=== PATIENT | female | born 1985 | race Caucasian/White ===

== ENCOUNTER 2020-01-23 09:48 | Emergency (ER) | payer BC, OTHER ==
[2020-01-23 09:55] VITALS: BP 118/75; PULSE 76; RESP 18; TEMP 98.1
[2020-01-23] MEDS ORDERED: KETOROLAC 15 MG/ML 1 ML VIAL IM STA (10:14)
--- NOTE | 2020-01-23 10:14 | ED ---
ENT HPI - General Chief complaint: Dental/Oral Stated complaint: Tooth pain Time Seen by Provider: 01/23/20 10:00 Source: patient Mode of arrival: ambulatory Limitations: no limitations - History of Present Illness Initial comments: Patient is a 34-year-old female presenting to the emergency Department with complaints of left upper dental pain that started yesterday. Patient states she has been trying to take ibuprofen for the pain and using topical Orajel which did help yesterday but is not helping today. She denies any fever, vomiting, facial swelling. She states she did try calling dentists around the area but they are all closed until Saturday. She states she has had dental pain in the past but never been this severe. She has no further complaints at this time. Upon arrival to the ER, her vital signs are stable. - Related Data Previous Rx's Medication Instructions Recorded Hydrocodone/Acetaminophen [[place] 1 tab PO Q6HR PRN #10 tab 01/23/20 5-325] Penicillin V Potassium [Pen Vee K] 500 mg PO QID 5 Days #20 tablet 01/23/20 Allergies Allergy/AdvReac Type Severity Reaction Status Date / Time No Known Allergies Allergy Verified 01/23/20 09:52 Review of Systems ROS Statement: Those systems with pertinent positive or pertinent negative responses have been documented in the HPI. ROS Other: All systems not noted in ROS Statement are negative. Past Medical History Past Medical History: GERD/Reflux History of Any Multi-Drug Resistant Organisms: None Reported Past Surgical History: Adenoidectomy Past Psychological History: No Psychological Hx Reported Smoking Status: Current every day smoker Past Alcohol Use History: Rare Past Drug Use History: None Reported General Exam - General Exam Comments Initial Comments: GENERAL: Patient is well-developed and well-nourished. Patient is nontoxic and in no acute distress. HEAD: Atraumatic, normocephalic. EYES: Pupils equal round and reactive to light, extraocular movements intact, sclera anicteric, conjunctiva are normal. Eyelids were unremarkable. ENT: TMs normal, nares patent, oropharynx clear without exudates. Moist mucous membranes. Patient does have pain with palpation along the gumline of the left upper molars, no visible abscess seen. No facial swelling. NECK: Normal range of motion, supple without lymphadenopathy or JVD. LUNGS: Unlabored respirations. Breath sounds clear to auscultation bilaterally and equal. No wheezes rales or rhonchi. HEART: Regular rate and rhythm without murmurs, rubs or gallops. ABDOMEN: Soft, nontender, normoactive bowel sounds. No guarding, no rebound. No masses appreciated. : Deferred MUSCULOSKELETAL: Normal extremities with adequate strength and normal range of motion, no pitting or edema. No clubbing or cyanosis. NEUROLOGICAL: Patient is alert and oriented x 3. Motor and sensory are also intact. Symmetrical smile. Normal speech, normal gait. PSYCH: Normal mood, normal affect. SKIN: Warm, Dry, normal turgor, no rashes or lesions noted. Limitations: no limitations Course Vital Signs 01/23/20 09:52 Temperature 98.1 F Pulse Rate 76 Respiratory 18 Rate Blood Pressure 118/75 O2 Sat by Pulse 100 Oximetry Medical Decision Making - Medical Decision Making Patient is a 34-year-old female here for left upper dental pain 2 days. Vital signs are stable, afebrile. There is no visible abscess seen. Patient did try to get ahold of her dentist, however they are closed until after the holiday weekend. Patient will be given Toradol in the ER and started on penicillin as well as a short course of pain meds. She is urged to follow-up with dentist as soon as she can. She is stable for discharge. Patient is agreement with this plan of care. Return parameters were discussed with the patient she verbalized understanding. Disposition Clinical Impression: Pain, dental Disposition: HOME SELF-CARE Condition: Stable Instructions (If sedation given, give patient instructions): Toothache (ED) Additional Instructions: Please return to the Emergency Department if symptoms worsen or any other concerns. Take antibiotic as prescribed. May take pain medication as prescribed as well, alternate with ibuprofen. Follow-up with dentist JAMAL. Prescriptions: Hydrocodone/Acetaminophen [[place] 5-325] 1 tab PO Q6HR PRN #10 tab PRN Reason: Pain Penicillin V Potassium [Pen Vee K] 500 mg PO QID 5 Days #20 tablet Is patient prescribed a controlled substance at d/c from ED?: Yes When asked, does pt state using other controlled substances?: No If prescribed controlled substance>3 days was MAPS reviewed?: Prescribed <3 Days If opioid is for acute pain is fill amount 7 days or less?: Yes If Rx opioid, was Start Talking consent form obtained?: Yes Referrals: Fam Mujica DO [Primary Care Provider] - 1-2 days
== END 2020-01-23 10:50 | disposition home or self-care (01) ==
LOC: EC 09:48
DX: K08.89 Other specified disorders of teeth and supporting structures (principal); F17.200 Nicotine dependence, unspecified, uncomplicated
CPT/HCPCS: 96372; 99282; J1885

== ENCOUNTER → 2020-06-29 | Outpatient (CLI) | payer OTHER ==
--- NOTE | 2020-06-29 14:03 | US ---
EXAMINATION TYPE: Ultrasound OB <= 14 week fetus DATE OF EXAM: 06/29/2020 12:56 PM COMPARISON: NONE CLINICAL HISTORY: 34-year-old female Z36 confirm dates. EXAM PERFORMED: Transabdominal (TA) FINDINGS: EXAM MEASUREMENTS: GESTATIONAL AGE / DATING Physician Established: (10 weeks/4 days) EDC: 01/21/2021 Dates by LMP: (10 weeks/4 days) EDC: 01/21/2021 Dates by First Scan: No previous this is first scan ( Dates by Current Scan for: ( 9 weeks/5 days +/- 6 days) EDC: 01/27/2021 MATERNAL ANATOMY Uterus: 9.2 x 5.5 x 7.1 cm Right Ovary: Obscured by bowel gas. Left Ovary: 2.9 x 2.8 x 2.7 cm Post CDS / Adnexa: wnl Presence of free fluid: no Presence of corpus luteal cyst: On the left side measuring 2.1 cm. Presence of subchorionic bleed: no GESTATION / SURVEY CRL: 2.9 cm (9 weeks/5 days) Heart Rate: 168 bpm Rhythm: Normal IUP: Viable IUP IMPRESSION: 1. Single live intrauterine with estimated gestational age of 10 weeks 4 days by LMP. Curre nt ultrasound biometry is smaller (9 weeks 5 days) and is at the threshold of being discordant. Corre late as to accuracy of recall of LMP. Follow-up as clinically indicated. 2. A 2.1 cm corpus luteal cyst in the left ovary. Right ovary could not be visualized. 3. Complete survey recommended at 18-20 weeks.
== END | disposition home or self-care (01) ==
LOC: RADUSWWP 12:40
PROVIDERS: ATTEND Obstetrics & Gynecology
DX: Z36.9 Encounter for antenatal screening, unspecified (principal); Z3A.10 10 weeks gestation of pregnancy; N83.202 Unspecified ovarian cyst, left side
CPT/HCPCS: 76801

== ENCOUNTER 2020-07-07 19:40 | Emergency (ER) | payer OTHER ==
[2020-07-07 19:50] VITALS: BP 131/72; PULSE 86; RESP 18; TEMP 98.7
--- NOTE | 2020-07-07 19:53 | ED ---
Female Urogenital HPI - General Chief complaint: Vaginal Bleeding Stated complaint: Vag bleeding (11 weeks prg) Time Seen by Provider: 07/07/20 19:52 Source: patient Mode of arrival: ambulatory Limitations: no limitations - History of Present Illness Initial comments: 34-year-old female, , 11 weeks Presents emergency department with a chief complaint of vaginal bleeding. Patient states she was having intercourse about 2 hours prior to arrival and noticed some bright red vaginal bleeding which probably the result. Patient states she saw the OB who advised her to come to the emergency department if she ever develops any vaginal bleed ing because her blood type is A-. Patient reports this is not the first time she's having intercourse throughout her but it is the first time she's having vaginal bleeding. Denies any vaginal discharge, increased urgency, frequency or dysuria. Denies hematuria, hematochezia or melena. Denies any abdominal pain or cramping at this time. Denies nausea vomiting diarrhea. Last Menstrual Period: 04/16/20 - Related Data Previous Rx's Medication Instructions Recorded Hydrocodone/Acetaminophen [[place] 1 tab PO Q6HR PRN #10 tab 01/23/20 5-325] Penicillin V Potassium [Pen Vee K] 500 mg PO QID 5 Days #20 tablet 01/23/20 Allergies Allergy/AdvReac Type Severity Reaction Status Date / Time No Known Allergies Allergy Verified 07/07/20 19:50 Review of Systems ROS Statement: Those systems with pertinent positive or pertinent negative responses have been documented in the HPI. ROS Other: All systems not noted in ROS Statement are negative. Past Medical History Past Medical History: GERD/Reflux History of Any Multi-Drug Resistant Organisms: None Reported Past Surgical History: Adenoidectomy Past Psychological History: No Psychological Hx Reported Smoking Status: Former smoker Past Alcohol Use History: Rare Past Drug Use History: None Reported General Exam Limitations: no limitations General appearance: alert, in no apparent distress Head exam: Present: atraumatic, normocephalic, normal inspection Eye exam: Present: normal appearance, PERRL, EOMI Pupils: Present: normal accommodation ENT exam: Present: normal exam, normal oropharynx, mucous membranes moist Neck exam: Present: normal inspection, full ROM. Absent: tenderness Respiratory exam: Present: normal lung sounds bilaterally. Absent: respiratory distress Cardiovascular Exam: Present: regular rate, normal rhythm, normal heart sounds GI/Abdominal exam: Present: soft. Absent: distended, tenderness, guarding, rebound External exam: Present: normal external exam. Absent: erythema, swelling, lesions, lacerations, ecchymosis Speculum exam: Present: normal speculum exam. Absent: erythema, vaginal discharge, cervical discharge, vaginal bleeding (no signs of any vaginal bleeding or injury to the vaginal wall) Extremities exam: Present: normal inspection, full ROM, normal capillary refill. Absent: tenderness, pedal edema, joint swelling Back exam: Present: normal inspection, full ROM. Absent: tenderness, CVA tenderness (R), CVA tenderness (L) Neurological exam: Present: alert, oriented X3, normal gait Psychiatric exam: Present: normal affect, normal mood Skin exam: Present: warm, dry, intact, normal color Course Vital Signs 07/07/20 19:46 Temperature 98.7 F Pulse Rate 86 Respiratory 18 Rate Blood Pressure 131/72 O2 Sat by Pulse 98 Oximetry Medical Decision Making - Medical Decision Making 34-year-old female, , 11 weeks Presents emergency department with a chief complaint of vaginal bleeding. On physical examination, patient has no abdominal tenderness. Pelvic examination reveals no signs of injury to the vaginal wall or cervix. There is no vaginal bleeding noted. Vaginal cultures along with gonorrhea, chlamydia and Trichomonas obtained. CBC reveals mild leukocytosis which I suspect is reactive secondary to .hcg quantitative is 100k. CMP is unremarkable. ultrasound shows a viable intrauterine . There is small amount of subchorionic hemorrhage. Patient is A-. Aerobic and was administered. Patient was advised to avoid sexual intercourse at this time. Return parameters discussed the patient was understanding and agreeable. Was advised to follow-up with OB. Case discussed with physician. - Lab Data Result diagrams: 07/07/20 20:17 07/07/20 20:17 Lab Results 07/07/20 07/07/20 07/07/20 Range/Units 20:15 20:17 20:17 WBC 14.7 H (3.8-10.6) k/uL RBC 4.41 (3.80-5.40) m/uL Hgb 13.6 (11.4-16.0) gm/dL Hct 39.0 (34.0-46.0) % MCV 88.5 (80.0-100.0) fL MCH 30.8 (25.0-35.0) pg MCHC 34.8 (31.0-37.0) g/dL RDW 12.1 (11.5-15.5) % Plt Count 201 (150-450) k/uL MPV 8.9 Neutrophils % 72 % Lymphocytes % 20 % Monocytes % 5 % Eosinophils % 1 % Basophils % 0 % Neutrophils # 10.6 H (1.3-7.7) k/uL Lymphocytes # 3.0 (1.0-4.8) k/uL Monocytes # 0.7 (0-1.0) k/uL Eosinophils # 0.1 (0-0.7) k/uL Basophils # 0.1 (0-0.2) k/uL Sodium 134 L (137-145) mmol/L Potassium 3.5 (3.5-5.1) mmol/L Chloride 102 (98-107) mmol/L Carbon Dioxide 24 (22-30) mmol/L Anion Gap 8 mmol/L BUN 18 H (7-17) mg/dL Creatinine 0.69 (0.52-1.04) mg/dL Est GFR (CKD-EPI)AfAm >90 (>60 ml/min/1.73 sqM) Est GFR (CKD-EPI)NonAf >90 (>60 ml/min/1.73 sqM) Glucose 88 (74-99) mg/dL Calcium 9.2 (8.4-10.2) mg/dL Total Bilirubin 0.2 (0.2-1.3) mg/dL AST 17 (14-36) U/L ALT 12 (4-34) U/L Alkaline Phosphatase 50 (38-126) U/L Total Protein 6.9 (6.3-8.2) g/dL Albumin 4.0 (3.5-5.0) g/dL HCG, Quant 781808.0 mIU/mL Urine Color Urine Appearance (Clear) Urine pH (5.0-8.0) Ur Specific [place] (1.001-1.035) Urine Protein (Negative) Urine Glucose (UA) (Negative) Urine Ketones (Negative) Urine Blood (Negative) Urine Nitrite (Negative) Urine Bilirubin (Negative) Urine Urobilinogen (<2.0) mg/dL Ur Leukocyte Esterase (Negative) Urine RBC (0-5) /hpf Urine WBC (0-5) /hpf Ur Squamous Epith Cells (0-4) /hpf Urine Bacteria (None) /hpf Urine Sperm (None) /hpf Trichomonas Ag (Rapid) (Negative) Blood Type A Negative Blood Type Confirm Blood Type Recheck No Previous Record Bld Type Recheck Status CABO Indicated Antibody Screen NEGATIVE Spec Expiration Date 07/10/2020 - 231407/07/20 07/07/20 07/07/20 Range/Units 20:17 20:34 22:08 WBC (3.8-10.6) k/uL RBC (3.80-5.40) m/uL Hgb (11.4-16.0) gm/dL Hct (34.0-46.0) % MCV (80.0-100.0) fL MCH (25.0-35.0) pg MCHC (31.0-37.0) g/dL RDW (11.5-15.5) % Plt Count (150-450) k/uL MPV Neutrophils % % Lymphocytes % % Monocytes % % Eosinophils % % Basophils % % Neutrophils # (1.3-7.7) k/uL Lymphocytes # (1.0-4.8) k/uL Monocytes # (0-1.0) k/uL Eosinophils # (0-0.7) k/uL Basophils # (0-0.2) k/uL Sodium (137-145) mmol/L Potassium (3.5-5.1) mmol/L Chloride (98-107) mmol/L Carbon Dioxide (22-30) mmol/L Anion Gap mmol/L BUN (7-17) mg/dL Creatinine (0.52-1.04) mg/dL Est GFR (CKD-EPI)AfAm (>60 ml/min/1.73 sqM) Est GFR (CKD-EPI)NonAf (>60 ml/min/1.73 sqM) Glucose (74-99) mg/dL Calcium (8.4-10.2) mg/dL Total Bilirubin (0.2-1.3) mg/dL AST (14-36) U/L ALT (4-34) U/L Alkaline Phosphatase (38-126) U/L Total Protein (6.3-8.2) g/dL Albumin (3.5-5.0) g/dL HCG, Quant mIU/mL Urine Color Light Yellow Urine Appearance Clear (Clear) Urine pH 6.5 (5.0-8.0) Ur Specific [place] 1.012 (1.001-1.035) Urine Protein Negative (Negative) Urine Glucose (UA) Negative (Negative) Urine Ketones Negative (Negative) Urine Blood Small H (Negative) Urine Nitrite Negative (Negative) Urine Bilirubin Negative (Negative) Urine Urobilinogen <2.0 (<2.0) mg/dL Ur Leukocyte Esterase Negative (Negative) Urine RBC 1 (0-5) /hpf Urine WBC 1 (0-5) /hpf Ur Squamous Epith Cells 1 (0-4) /hpf Urine Bacteria Occasional H (None) /hpf Urine Sperm Few H (None) /hpf Trichomonas Ag (Rapid) Negative (Negative) Blood Type Blood Type Confirm A Negative Blood Type Recheck Bld Type Recheck Status Antibody Screen Spec Expiration Date Disposition Clinical Impression: Vaginal bleeding Disposition: HOME SELF-CARE Condition: Stable Instructions (If sedation given, give patient instructions): (ED) Additional Instructions: Follow-up with your OB. Return to emergency department if symptoms worsen. avoid intercourse. Is patient prescribed a controlled substance at d/c from ED?: No Referrals: Fam Mujica DO [Primary Care Provider] - 1-2 days Time of Disposition: 23:03
[2020-07-07] MEDS ORDERED: SODIUM CHLORIDE 0.9% 1,000 ML IV STA (20:06)
[2020-07-07 20:31] LABS: Appearance,Urine Clear (Clear); Bacteria,Urine Occasional /hpf; Basophils # (A) 0.1 k/uL (0-0.2); Basophils % (A) 0 %; Bilirubin,Urine Negative (Negative); Blood,Urine Small (Negative); Color,Urine Light Yellow; Eosinophils # (A) 0.1 k/uL (0-0.7); Eosinophils % (A) 1 %; Glucose,Urine (UA) Negative (Negative); HGB 13.6 gm/dL (11.4-16.0); Ketones,Urine Negative (Negative); Leukocyte Esterase,Urine Negative (Negative); Lymphocytes % (A) 20 %; MCH 30.8 pg (25.0-35.0); MCHC 34.8 g/dL (31.0-37.0); MCV 88.5 fL (80.0-100.0); Mean Platelet Volume 8.9; Monocytes # (A) 0.7 k/uL (0-1.0); Monocytes % (A) 5 %; Neutrophils # (A) 10.6 k/uL (1.3-7.7); Neutrophils % (A) 72 %; Nitrite,Urine Negative (Negative); PH, Urine 6.5 (5.0-8.0); Platelet Count 201 k/uL (150-450); Protein,Urine Negative (Negative); RBC 4.41 m/uL (3.80-5.40); RBC,Urine 1 /hpf (0-5); RDW 12.1 % (11.5-15.5); Specific Gravity,Urine 1.012 (1.001-1.035); Sperm,Urine Few /hpf; Squamous Epithelial Cell,Urine 1 /hpf (0-4); Urobilinogen,Urine <2.0 mg/dL (<2.0); WBC 14.7 k/uL (3.8-10.6); WBC,Urine 1 /hpf (0-5)
[2020-07-07 20:40] LABS: ALT 12 U/L (4-34); AST 17 U/L (14-36); African American GFR (CKD) >90 (>60 ml/min/1.73 sqM); Alkaline Phosphatase 50 U/L (38-126); Anion Gap 8 mmol/L; Blood Urea Nitrogen 18 mg/dL (7-17); Calcium 9.2 mg/dL (8.4-10.2); Carbon Dioxide 24 mmol/L (22-30); Chloride 102 mmol/L (98-107); Glucose 88 mg/dL (74-99); Non-African American GFR(CKD) >90 (>60 ml/min/1.73 sqM); Potassium 3.5 mmol/L (3.5-5.1); Sodium 134 mmol/L (137-145); Total Bilirubin 0.2 mg/dL (0.2-1.3); Total Protein 6.9 g/dL (6.3-8.2)
--- NOTE | 2020-07-07 21:19 | US ---
EXAMINATION TYPE: Transabdominal Ultrasound OB < 14 weeks DATE OF EXAM: 07/07/2020 9:03 PM COMPARISON: Ultrasound 06/29/2020 CLINICAL HISTORY: vag bleed. Vaginal bleeding. . EXAM PERFORMED: Transabdominal (TA) EXAM MEASUREMENTS: GESTATIONAL AGE / DATING Physician Established: Unknown. Dates by LMP: (11 weeks/5 days) EDC: 01/21/2021 Dates by First Scan: (10 weeks/6 days) EDC: 01/27/2021 Dates by Current Scan for: (11 weeks/1 day) EDC: 01/25/2021 MATERNAL ANATOMY Uterus: 11.7 x 8.1 x 5.8 cm. Anteverted. Right Ovary: 3.5 x 1.4 x 1.4 cm. Follicles seen. Left Ovary: 2.9 x 2.1 x 2.4 cm. Post CDS / Adnexa: Appear wnl Presence of free fluid: None seen. Presence of corpus luteal cyst: Anechoic sphere with through sound transmission noted, left ovary me asuring 1.7 x 1.7 x 1.9 cm. Presence of subchorionic bleed: Tiny hypoechoic focus seen adjacent to the gestational sac measuring 1.1 x 0.7 x 0.6 cm. GESTATION / SURVEY CRL: 4.30 cm. (11 weeks/1 day) Yolk Sac (normal less than 6mm): 4.1 mm. Heart Rate: 159 bpm Rhythm: Normal IUP: Viable IUP Nuchal Translucency 10-14wks (normal less than 3mm): Not well seen. Date of LMP: 01/28/2020 Beta HcG (if available): Not available. IMPRESSION: 1. Transabdominal Ultrasound OB consistent with viable intrauterine . 2. Findings consistent with tiny subchorionic hemorrhage measuring 11 x 7 x 6 mm.
[2020-07-07] MEDS ORDERED: Rhogam IMMUNE GLOBULIN 1,500 UNIT/1 ML IM ONE (22:01)
[2020-07-09 14:00] LABS: C. trachomatis,PCR Negative (Neg,Equiv); Chlamydia trachomatis Source Cervix
== END 2020-07-07 23:17 | disposition home or self-care (01) ==
LOC: EC 19:40
DX: O46.91 Antepartum hemorrhage, unspecified, first trimester (principal); O99.111 Other diseases of the blood and blood-forming organs and certain disorders involving the immune mechanism complicating pregnancy, first trimester; D72.829 Elevated white blood cell count, unspecified; Z3A.11 11 weeks gestation of pregnancy; Z87.891 Personal history of nicotine dependence
CPT/HCPCS: 36415; 86900; 86901; 80053; 85025; 86850; 81001; 84702; 87808; 87491; 87070; 76801; 99284; 96360; 96372; J2791

== ENCOUNTER 2020-07-18 10:07 | Emergency (ER) | payer OTHER ==
[2020-07-18 10:26] VITALS: RESP 18
--- NOTE | 2020-07-18 10:57 | ED ---
General Adult HPI - General Chief complaint: Recheck/Abnormal Lab/Rx Stated complaint: 12 wks preg, female UG Time Seen by Provider: 07/18/20 10:28 Source: patient Mode of arrival: ambulatory Limitations: no limitations - History of Present Illness Initial comments: Patient is a 34-year-old female presenting to the emergency department with concerns of possible diarrhea they came out of her vagina. Patient is currently 12 weeks , , RN LONG TERM CARE is Dr. Clemons. Patient states that she "farted and poop came out my butt and vagina." Patient states she is currently on day 2 of Flagyl after testing positive for bacterial vaginosis. Patient states she has been having a little bit of nausea and some mild diarrhea that started yesterday. He denies any vaginal bleeding, no abdominal pain. She did call her RN LONG TERM CARE's office today but they did not call her back. Patient has no further complaints. Upon arrival to the ER, her vital signs are stable. - Related Data Home Medications Medication Instructions Recorded Confirmed Calcium Carbonate [Tums] 500 mg PO QID 07/18/20 07/18/20 Multivitamins, Thera [Multivitamin 1 tab PO DAILY 07/18/20 07/18/20 (formulary)] metroNIDAZOLE [Flagyl] 500 mg PO BID 07/18/20 07/18/20 Allergies Allergy/AdvReac Type Severity Reaction Status Date / Time No Known Allergies Allergy Verified 07/18/20 10:45 Review of Systems ROS Statement: Those systems with pertinent positive or pertinent negative responses have been documented in the HPI. ROS Other: All systems not noted in ROS Statement are negative. Past Medical History Past Medical History: GERD/Reflux History of Any Multi-Drug Resistant Organisms: None Reported Past Surgical History: Adenoidectomy Past Psychological History: No Psychological Hx Reported Smoking Status: Former smoker Past Alcohol Use History: Rare Past Drug Use History: None Reported General Exam - General Exam Comments Initial Comments: GENERAL: Patient is well-developed and well-nourished. Patient is nontoxic and in no acute distress. HEAD: Atraumatic, normocephalic. EYES: Pupils equal round and reactive to light, extraocular movements intact, sclera anicteric, conjunctiva are normal. Eyelids were unremarkable. ENT: TMs normal, nares patent, oropharynx clear without exudates. Moist mucous membranes. NECK: Normal range of motion, supple without lymphadenopathy or JVD. LUNGS: Unlabored respirations. Breath sounds clear to auscultation bilaterally and equal. No wheezes rales or rhonchi. HEART: Regular rate and rhythm without murmurs, rubs or gallops. ABDOMEN: Soft, nontender, normoactive bowel sounds. No guarding, no rebound. No masses appreciated. MUSCULOSKELETAL: Normal extremities with adequate strength and normal range of motion, no pitting or edema. No clubbing or cyanosis. NEUROLOGICAL: Patient is alert and oriented x 3. Motor and sensory are also intact. Normal speech, normal gait. PSYCH: Normal mood, normal affect. SKIN: Warm, Dry, normal turgor, no rashes or lesions noted. Limitations: no limitations External exam: Present: normal external exam Speculum exam: Present: normal speculum exam, cervical discharge (Very mild whitish discharge consistent with current a bacterial vaginosis diagnosis). Absent: vaginal bleeding By manual exam: Present: normal by manual exam Course Vital Signs 07/18/20 10:23 Temperature 97.5 F L Pulse Rate 86 Respiratory 18 Rate Blood Pressure 118/69 O2 Sat by Pulse 98 Oximetry Medical Decision Making - Medical Decision Making Patient is a 34-year-old female here with concerns of possible cc that came out of her vagina today. Patient is currently 12 weeks , , OBGYN is Dr. Clemons. Her vital signs are stable, she has no abdominal pain on exam. Her vaginal exam revealed no vaginal bleeding, no evidence of feces, some very mild whitish discharge consistent with bacterial vaginosis, no pain. No other abnormalities noted on vaginal exam. Patient's urine is unremarkable, no signs of bacteria. Patient does have a follow-up with her RN LONG TERM CARE later this week. She can continue with the Flagyl as prescribed. She is stable for discharge, she is in agreement with this plan of care. Return parameters were discussed with the patient's verbalized understanding. Case discussed Dr. La. - Lab Data Lab Results 07/18/20 Range/Units 10:57 Urine Color Light Yellow Urine Appearance Clear (Clear) Urine pH 6.5 (5.0-8.0) Ur Specific [place] 1.013 (1.001-1.035) Urine Protein Negative (Negative) Urine Glucose (UA) Negative (Negative) Urine Ketones Negative (Negative) Urine Blood Negative (Negative) Urine Nitrite Negative (Negative) Urine Bilirubin Negative (Negative) Urine Urobilinogen <2.0 (<2.0) mg/dL Ur Leukocyte Esterase Trace H (Negative) Urine RBC 1 (0-5) /hpf Urine WBC 1 (0-5) /hpf Ur Squamous Epith Cells 2 (0-4) /hpf Urine Mucus Rare H (None) /hpf Disposition Clinical Impression: Diarrhea, Disposition: HOME SELF-CARE Condition: Stable Instructions (If sedation given, give patient instructions): Normal Exam (ED) Additional Instructions: Please return to the Emergency Department if symptoms worsen or any other concerns. Follow-up with your RN LONG TERM CARE. Is patient prescribed a controlled substance at d/c from ED?: No Referrals: Fam Mujica DO [Primary Care Provider] - 1-2 days Dakota Clemons DO [Doctor of Osteopathic Medicine] - 1-2 days
[2020-07-18 11:11] LABS: Appearance,Urine Clear (Clear); Bilirubin,Urine Negative (Negative); Blood,Urine Negative (Negative); Color,Urine Light Yellow; Glucose,Urine (UA) Negative (Negative); Ketones,Urine Negative (Negative); Leukocyte Esterase,Urine Trace (Negative); Mucus,Urine Rare /hpf; Nitrite,Urine Negative (Negative); PH, Urine 6.5 (5.0-8.0); Protein,Urine Negative (Negative); RBC,Urine 1 /hpf (0-5); Specific Gravity,Urine 1.013 (1.001-1.035); Squamous Epithelial Cell,Urine 2 /hpf (0-4); Urobilinogen,Urine <2.0 mg/dL (<2.0); WBC,Urine 1 /hpf (0-5)
[2020-07-18 11:47] VITALS: BP 121/71; PULSE 84; TEMP 97.8
== END 2020-07-18 11:47 | disposition home or self-care (01) ==
LOC: EC 10:07
DX: O99.891 Other specified diseases and conditions complicating pregnancy (principal); R19.7 Diarrhea, unspecified; K21.9 Gastro-esophageal reflux disease without esophagitis; Z87.891 Personal history of nicotine dependence; Z3A.12 12 weeks gestation of pregnancy
CPT/HCPCS: 81001; 99284

== ENCOUNTER → 2020-12-19 | Outpatient (CLI) | payer OTHER ==
--- NOTE | 2020-12-19 10:46 | US ---
EXAMINATION TYPE: US thyroid st tissue head/neck DATE OF EXAM: 12/19/2020 COMPARISON: NONE CLINICAL HISTORY: 35-year-old female R07.0 PAIN IN THROAT. Patient states she felt tightness in her t hroat a few weeks ago. On thyroid meds per patient. TECHNIQUE: Multiple sonographic images of the thyroid gland are obtained. FINDINGS: GLAND SIZE: Right Lobe: 4.1 x 1.7 x 1.8 cm Overall Parenchyma: homogenous Left Lobe: 4.1 x 1.6 x 1.6 cm Overall Parenchyma: homogeneous Isthmus Thickness: 0.3 cm NODULES RIGHT: # of nodules measured on right: 1 1. 0.5 X 0.4 x 0.3 cm, upper mid, solid or almost completely solid, hypoechoic nodule, which is wid er than tall, with smooth margins, without echogenic foci. Prior size: no prior LEFT: # of nodules measured on left: 0 ISTHMUS: # of nodules measured in the isthmus: 0 Bilateral neck scanned, no evidence of lymphadenopathy. IMPRESSION: Solitary solid 5 mm nodule in the right lobe. 6-12 month follow-up can be considered.
== END | disposition home or self-care (01) ==
LOC: RADUSWWP 08:52
PROVIDERS: ATTEND Family Medicine
DX: E04.1 Nontoxic single thyroid nodule (principal)
CPT/HCPCS: 76536

== ENCOUNTER 2021-01-05 14:05 | Outpatient (CLI) | payer OTHER ==
[2021-01-05 14:37] VITALS: RESP 16; TEMP 98
[2021-01-05 14:49] LABS: Amorphous Sediment,Urine Rare /hpf; Appearance,Urine Cloudy (Clear); Bacteria,Urine Rare /hpf; Bilirubin,Urine Negative (Negative); Blood,Urine Negative (Negative); Color,Urine Yellow; Glucose,Urine (UA) Trace (Negative); Ketones,Urine Negative (Negative); Leukocyte Esterase,Urine Moderate (Negative); Mucus,Urine Rare /hpf; Nitrite,Urine Negative (Negative); PH, Urine 6.5 (5.0-8.0); Protein,Urine Trace (Negative); RBC,Urine 6 /hpf (0-5); Specific Gravity,Urine 1.025 (1.001-1.035); Squamous Epithelial Cell,Urine 19 /hpf (0-4); Urobilinogen,Urine <2.0 mg/dL (<2.0); WBC,Urine 5 /hpf (0-5)
[2021-01-05 14:58] LABS: Creatinine,Urine Random 117.6 mg/dL; Protein/Creatinine Ratio,Urine 0.077
[2021-01-05 15:21] LABS: ALT 20 U/L (4-34); AST 25 U/L (14-36); African American GFR (CKD) >90 (>60 ml/min/1.73 sqM); Blood Urea Nitrogen 10 mg/dL (7-17); LDH 493 U/L (313-618); Non-African American GFR(CKD) >90 (>60 ml/min/1.73 sqM); Uric Acid 4.7 mg/dL (3.7-7.4)
[2021-01-05 15:38] VITALS: PULSE 95
[2021-01-05 15:41] LABS: Basophils % (A) 0 %; Eosinophils % (A) 0 %; HCT 36.2 % (34.0-46.0); HGB 12.5 gm/dL (11.4-16.0); Lymphocytes # (A) 1.7 k/uL (1.0-4.8); Lymphocytes % (A) 15 %; MCH 32.1 pg (25.0-35.0); MCHC 34.6 g/dL (31.0-37.0); MCV 92.8 fL (80.0-100.0); Monocytes # (A) 0.6 k/uL (0-1.0); Monocytes % (A) 5 %; Neutrophils # (A) 8.3 k/uL (1.3-7.7); Neutrophils % (A) 75 %; Platelet Count 217 k/uL (150-450); WBC 11.1 k/uL (3.8-10.6)
[2021-01-05 17:34] VITALS: BP 145/69
== END 2021-01-05 16:20 | disposition home or self-care (01) ==
LOC: FBPOP 14:05
PROVIDERS: ATTEND Obstetrics & Gynecology
DX: O13.3 Gestational [pregnancy-induced] hypertension without significant proteinuria, third trimester (principal); Z3A.36 36 weeks gestation of pregnancy
CPT/HCPCS: 59025; 82570; 84156; 82565; 83615; 84450; 84460; 84520; 84550; 85025; 81001; G0463; 99215

== ENCOUNTER 2021-01-08 16:30 | Inpatient (IN) | payer OTHER ==
--- NOTE | 2021-01-05 16:36 | P.PN ---
Progress Note - Text Progress Note Date: 01/05/21 Christine was sent over from my office for elevated blood pressure. Pre-clamped labs were ordered and all returned normal. Her protein creatinine ratio was 0.07 which is well within normal limits. She has negative protein in her urine. She is 1+ edema in both legs and hands but scant facial swelling. She and I discussed her gestational hypertension status and options included either Cervidil tonight with induction tomorrow or bring her back on Saturday for Cervidil and induction on Saturday. She would like to avoid a section at all costs and would prefer to wait a couple of days and be induced on Saturday. Risks of pre-clamps were reviewed and instructions for return to the hospital for headache, gastric pain, visual changes or other signs or symptoms of pre- clamps were thoroughly reviewed with both she and her partner. All the questions are answered for her and we will plan to discharge her home today and have her return on Saturday for Cervidil ripening for a on unfavorable cervix with gestational hypertension after 37 weeks.
[2021-01-08] MEDS ORDERED: BUTORPHANOL 1 MG/ML 1 ML VIAL IV PRN (16:53)
[2021-01-08] MEDS ORDERED: DINOPROSTONE 10 MG INSERT.ER VAGINAL ONE (16:53)
[2021-01-09] MEDS ORDERED: CARBOPROST TROMETHAMINE 250 MCG/ML 1 ML AMP IM PRN (04:48)
[2021-01-09] MEDS ORDERED: TERBUTALINE 1 MG/ML VIAL SQ PRN (04:48)
[2021-01-09] MEDS ORDERED: METHYLERGONOVINE 0.2 MG/ML 1 ML AMP IM PRN (04:48)
[2021-01-09] MEDS ORDERED: LIDOCAINE 0.5% (PF) 5 MG/ML (50 ML SDV) SQ PRN (04:48)
[2021-01-09] MEDS ORDERED: OXYTOCIN 10 UNIT/ML 1 ML VIAL IM PRN (04:48)
[2021-01-09] MEDS: LACTATED RINGERS 1,000 ML IV SCH ×4 (05:20→21:29)
[2021-01-09] MEDS: OXYTOCIN 30 UNITS/500 ML NS 30 UNIT in SALINE 1 500ML.BAG IV SCH ×2 (06:04→20:12)
[2021-01-09 06:11] LABS: Basophils % (A) 0 %; Eosinophils % (A) 0 %; HCT 38.4 % (34.0-46.0); HGB 12.9 gm/dL (11.4-16.0); Lymphocytes # (A) 2.1 k/uL (1.0-4.8); Lymphocytes % (A) 14 %; MCH 30.5 pg (25.0-35.0); MCHC 33.6 g/dL (31.0-37.0); Mean Platelet Volume 10.5; Monocytes # (A) 0.6 k/uL (0-1.0); Monocytes % (A) 4 %; Neutrophils # (A) 11.9 k/uL (1.3-7.7); Neutrophils % (A) 79 %; Platelet Count 222 k/uL (150-450); RBC 4.22 m/uL (3.80-5.40); RDW 13.6 % (11.5-15.5); WBC 15.1 k/uL (3.8-10.6)
[2021-01-09] MEDS ORDERED: ROPIVACAINE 5MG/ML 20ML VIAL ONE (08:49)
[2021-01-09] MEDS ORDERED: fentaNYL (PF) 50 MCG/ML 5 ML AMP ONE (08:49)
[2021-01-09] MEDS ORDERED: SODIUM CHLORIDE 0.9% 100 ML BAG ONE (08:49)
[2021-01-09] MEDS ORDERED: ROPIVACAINE 100 MG, fentaNYL (PF). 200 MCG in SODIUM CHLORIDE 0.9% 76 ML EPIDURAL ONE (09:06)
[2021-01-09] MEDS ORDERED: CITRIC ACID-SODIUM CITRATE 15 ML CUP PO ONE ×2 (18:25→18:27)
[2021-01-09] MEDS ORDERED: KETOROLAC 15 MG/ML 1 ML VIAL ONE (18:34)
[2021-01-09] MEDS ORDERED: OXYTOCIN 30 UNITS/500 ML NS BAG IV ONE (18:34)
[2021-01-09] MEDS ORDERED: ONDANSETRON 4 MG/2 ML VIAL ONE (18:34)
[2021-01-09] MEDS ORDERED: NALBUPHINE 10 MG/ML (1 ML AMP) ONE (18:34)
[2021-01-09] MEDS ORDERED: MORPHINE SULFATE (PF) 0.3 MG/0.3 ML SYR ONE (18:34)
[2021-01-09] MEDS ORDERED: diphenhydrAMINE 50 MG/ML 1 ML VIAL IVP PRN ×2 (19:35)
[2021-01-09] MEDS ORDERED: METOCLOPRAMIDE 5 MG/ML 2 ML VIAL IVP PRN (19:35)
[2021-01-09] MEDS ORDERED: SIMETHICONE 80 MG CHEWABLE PO PRN (19:35)
[2021-01-09] MEDS ORDERED: ZOLPIDEM 5 MG TAB PO PRN (19:35)
[2021-01-09] MEDS ORDERED: NALOXONE 0.4 MG/ML 1 ML VIAL IV PRN (19:35)
[2021-01-09] MEDS ORDERED: diphenhydrAMINE 50 MG CAP PO PRN (19:35)
[2021-01-09] MEDS ORDERED: diphenhydrAMINE 25 MG CAP PO PRN (19:35)
[2021-01-09] MEDS ORDERED: ONDANSETRON 4 MG/2 ML VIAL IVP PRN (19:35)
--- NOTE | 2021-01-09 19:39 | P.HPOB ---
History of Present Illness H&P Date: 01/09/21 Chief Complaint: Human at term: Gestational hypertension Christine is a 35-year-old at 8 weeks gestation who had elevated blood pressures late last week and is scheduled for induction of labor for same. Cervidil ripening was performed last night into this morning with good cervical change from closed to 2 cm dilated. Artificial rupture membranes was performed and clear fluid has been noted Pitocin augmentation of labor is anticipated and she expects to use epidural for analgesia. Her course otherwise was seen him for an episode of spotting at approximately 13 weeks she did pass her 3 hour Glucola screen and otherwise has done well. All questions were answered for her prior to proceeding to induction of labor and category 1 tracing has b een noted. Past Medical History Past Medical History: GERD/Reflux History of Any Multi-Drug Resistant Organisms: None Reported Past Surgical History: Adenoidectomy Past Anesthesia/Blood Transfusion Reactions: No Reported Reaction Past Psychological History: No Psychological Hx Reported Smoking Status: Former smoker Past Alcohol Use History: Rare Past Drug Use History: None Reported Medications and Allergies Home Medications Medication Instructions Recorded Confirmed Type Multivitamins, Thera [Multivitamin 1 tab PO DAILY 07/18/20 01/08/21 History (formulary)] Acyclovir [Zovirax] 01/05/21 01/05/21 History Famotidine [Pepcid] 20 mg PO BID 01/05/21 01/08/21 History Levothyroxine Sodium [Synthroid] 125 mcg PO DAILY 01/05/21 01/08/21 History Allergies Allergy/AdvReac Type Severity Reaction Status Date / Time No Known Allergies Allergy Verified 01/08/21 16:48 Exam Osteopathic Statement: *. No significant issues noted on an osteopathic s tructural exam other than those noted in the History and Physical/Consult. Intake and Output 01/09/21 01/09/21 01/09/21 06:59 14:59 22:59 Intake Total 1900 Output Total 200 Balance 1700 Intake: IV 1900 Output: Urine 200 Other: # Voids 1 - OBG Physical Exam Breast: both: normal (no masses) Abdomen: bowel sounds normal, no diffuse tenderness, no bruit present, no guarding noted, no hepatomegaly, no splenomegaly, no mass Vulva: both: normal Vagina: normal moisture, no discharge Cervix: no lesion, no discharge Uterus: normal size, normal contour Adnexa: both: normal Anus/Rectum: normal perianal skin, no rectal mass, no hemorrhoids, heme negative Results Result Diagrams: 01/09/21 05:20 Abnormal Lab Results - Last 24 Hours (Table) 01/09/21 Range/Units 05:20 WBC 15.1 H (3.8-10.6) k/uL Neutrophils # 11.9 H (1.3-7.7) k/uL
--- NOTE | 2021-01-09 19:42 | P.OP ---
Date of Procedure: 01/09/21 Preoperative Diagnosis: Into at term: Gestational hypertension: Failure to progress/arrest of labor Postoperative Diagnosis: Same Procedure(s) Performed: Primary low-transverse section Anesthesia: spinal Surgeon: Dakota Clemons Supervisor Post Wave #1: Roseanna Lantigua Estimated Blood Loss (ml): 600 IV fluids (ml): 800 Urine output (ml): 200 Pathology: other (Placenta) Condition: stable Disposition: floor Operative Findings: Female scores of 9 and 9 at one and 5 minutes Dalton and the weight was 7 lbs. 7 oz. There is significant molding and It noted even though she was only dated dilated to 6 Cm Description of Procedure: Christine was taken to the operating suite where a spinal anesthetic was found to be adequate. She was prepped and draped in the normal sterile fashion and placed in dorsal supine position with leftward tilt. Initially a Pfannenstiel skin incision was made and this incision was then carried through to underlying layer of the fashion with second knife. Fascia was then nicked in midline and this opening was extended laterally with Moon scissors. Superior and inferior aspect of this incision were then grasped tented up and bluntly and sharply dissected off the rectus muscles rectus muscles were then divided midline and sharp dissection through the peritoneum was performed. This opening was then extended superiorly and inferiorly with good visualization of both bowel bladder. Bladder blade was then placed in the bladder flap identified. It was entered sharply with Metzenbaums scissors carried across face uterus and bluntly dissected out of the operative field. Knife was then used to incise uterus and it was fully developed with a hemostat and then extended bluntly. Head was then H medically delivered anterior posterior shoulders were delivered from this position without difficulty polyp at the remainder the baby. Nursery personnel was present and assumed care. Placenta was then delivered intact Pitocin was added to the IV. Uterus was then exteriorized cleared of clots and debris and closed in 2 layers with 0 Vicryl suture. Once excellent hemostasis was obtained blood and debris was suctioned from the posterior cul-de-sac and uterus was reinserted the abdomen. Verification of hemostasis was noted. Peritoneal layer was closed with 0 Vicryl suture. Fascial layer was closed with 0 Vicryl suture. One layer of 3-0 Vicryl was placed in the deep subcuticular tissues to reapproximate skin and close space. Skin was then closed with 3-0 Vicryl subcuticular. Sponge, lap, needle counts were all correct 2. Patient was then taken to the recovery room in stable and satisfactory condition.
[2021-01-09] MEDS: SENNOSIDES-DOCUSATE SODIUM 1 EACH TAB PO SCH (21:29)
[2021-01-09] MEDS ORDERED: Rhogam IMMUNE GLOBULIN 1,500 UNIT/1 ML IM ONE (22:05)
[2021-01-10] MEDS: LACTATED RINGERS 1,000 ML IV SCH ×2 (00:21→19:19)
[2021-01-10] MEDS ORDERED: SODIUM CHLORIDE 0.9% 500 ML 500 ML IV ONE (00:38)
[2021-01-10] MEDS ORDERED: SODIUM CHLORIDE 0.9% 1,000 ML IV SCH (00:45)
[2021-01-10] MEDS: KETOROLAC 15 MG/ML 1 ML VIAL IVP SCH ×3 (03:55→15:59)
[2021-01-10 07:15] LABS: Basophils % (A) 0 %; Eosinophils % (A) 0 %; HCT 31.4 % (34.0-46.0); HGB 10.5 gm/dL (11.4-16.0); Lymphocytes # (A) 1.7 k/uL (1.0-4.8); Lymphocytes % (A) 13 %; MCHC 33.6 g/dL (31.0-37.0); MCV 92.5 fL (80.0-100.0); Mean Platelet Volume 10.2; Monocytes # (A) 0.5 k/uL (0-1.0); Monocytes % (A) 4 %; Neutrophils # (A) 10.6 k/uL (1.3-7.7); Neutrophils % (A) 81 %; Platelet Count 172 k/uL (150-450); RBC 3.39 m/uL (3.80-5.40); RDW 13.5 % (11.5-15.5); WBC 13.1 k/uL (3.8-10.6)
[2021-01-10] MEDS: SENNOSIDES-DOCUSATE SODIUM 1 EACH TAB PO SCH ×2 (08:02→22:17)
--- NOTE | 2021-01-10 11:16 | PN ---
PROGRESS NOTE PRINCIPAL DIAGNOSIS: Postop day 1. Overall Dorothy is doing well this morning. She is ambulating, voiding, and she is tolerating her diet. She voices no complaints. We will plan to continue current care with advancement of diet and ambulation, but otherwise she is stable at this time. MMRJ / IJN: [id number] /
[2021-01-10] MEDS ORDERED: HYDROcodone/APAP 5-325MG 1 EACH TAB PO PRN (11:58)
[2021-01-10] MEDS: LEVOTHYROXINE 125 MCG TAB PO SCH (17:33)
[2021-01-10] MEDS: ACETAMINOPHEN TAB 500 MG TAB PO PRN (18:50)
[2021-01-10] MEDS: IBUPROFEN 600 MG TAB PO PRN (22:17)
[2021-01-10] MEDS: FAMOTIDINE 20 MG TAB PO SCH (22:17)
[2021-01-10 23:37] VITALS: TEMP 98.2
[2021-01-11] MEDS: ACETAMINOPHEN TAB 500 MG TAB PO PRN ×3 (01:12→13:33)
[2021-01-11] MEDS: IBUPROFEN 600 MG TAB PO PRN ×2 (04:08→10:26)
[2021-01-11] MEDS: LEVOTHYROXINE 125 MCG TAB PO SCH (06:37)
--- NOTE | 2021-01-11 08:30 | P.DS ---
Providers Date of admission: 01/08/21 16:30 Expected date of discharge: 01/11/21 Attending physician: Dakota Clemons Primary care physician: Stated None Hospital Course: Patient doing very well post op day 2. She is ambulating, voiding and tolerating her diet. She voices no complaints. She is resting discharge home today. Vital signs are stable and afebrile. Heart regular, lungs clear, extremities without pain. Abdomen is soft at uterus is firm and lochia is reported light. Her incision is covered by silver dressing will remain so for 1 week. She will follow me in 1 week. Prescription for Motrin has been 40 to her pharmacy at she declines narcotic pain relievers. All the questions are answered for her and discharge instructions were thoroughly reviewed. She is stable for discharge at this time. Patient Condition at Discharge: Good Plan - Discharge Summary New Discharge Prescriptions: New Ibuprofen [Motrin] 600 mg PO Q6HR PRN #30 tab PRN Reason: Pain No Action Multivitamins, Thera [Multivitamin (formulary)] 1 tab PO DAILY Famotidine [Pepcid] 20 mg PO BID Acyclovir [Zovirax] Levothyroxine Sodium [Synthroid] 125 mcg PO DAILY Discharge Medication List Multivitamins, Thera [Multivitamin (formulary)] 1 tab PO DAILY 07/18/20 [History] Acyclovir [Zovirax] 01/05/21 [History] Famotidine [Pepcid] 20 mg PO BID 01/05/21 [History] Levothyroxine Sodium [Synthroid] 125 mcg PO DAILY 01/05/21 [History] Ibuprofen [Motrin] 600 mg PO Q6HR PRN #30 tab 01/11/21 [Rx] Follow up Appointment(s)/Referral(s): Dakota Clemons DO [Doctor of Osteopathic Medicine] - 1 Week Activity/Diet/Wound Care/Special Instructions: Lifting, limit stairs and driving, and pelvic rest. If any high temperatures, heavy bleeding, or severe pain call my office Discharge Disposition: HOME SELF-CARE
[2021-01-11] MEDS: SENNOSIDES-DOCUSATE SODIUM 1 EACH TAB PO SCH (08:32)
[2021-01-11] MEDS: FAMOTIDINE 20 MG TAB PO SCH (08:32)
[2021-01-11 08:58] VITALS: BP 117/68; PULSE 90; RESP 18
== END 2021-01-11 13:40 | disposition home or self-care (01) | DRG 788 ==
LOC: 4FBP 16:30
PROVIDERS: ADMIT Obstetrics & Gynecology; ATTEND Obstetrics & Gynecology
PROC: 10D00Z1 Extraction of Products of Conception, Low, Open Approach (ICD-10-PCS; principal; 2021-01-09 06:30)
DX: O13.4 Gestational [pregnancy-induced] hypertension without significant proteinuria, complicating childbirth (principal); O62.2 Other uterine inertia; Z3A.37 37 weeks gestation of pregnancy; K21.9 Gastro-esophageal reflux disease without esophagitis; Z87.891 Personal history of nicotine dependence; Z79.890 Hormone replacement therapy; Z37.0 Single live birth; O99.62 Diseases of the digestive system complicating childbirth
CPT/HCPCS: 85025; 85461; 86850; 86900; 86901; 88307

== ENCOUNTER → 2021-09-04 | Outpatient (CLI) | payer OTHER ==
--- NOTE | 2021-09-05 16:24 | US ---
EXAMINATION TYPE: US thyroid st tissue head/neck DATE OF EXAM: 09/04/2021 COMPARISON: US CLINICAL HISTORY: E04.1 SINGLE THYROID NODULE. F/U thyroid nodule, pt states feeling of choking GLAND SIZE: Right Lobe: 4.4 x 1.6 x 1.8 cm Overall Parenchyma: homogenous Left Lobe: 4.0 x 1.3 x 1.5 cm Overall Parenchyma: homogeneous Isthmus Thickness: 0.3 cm NODULES RIGHT: # of nodules measured on right: 1 1. 0.5 X 0.4 x 0.3 cm, upper, solid or almost completely solid, isoechoic nodule, which is wider th an tall, with smooth margins, without echogenic foci. Prior size: 0.5 x 0.4 x 0.3 cm LEFT: # of nodules measured on left: 0 ISTHMUS: # of nodules measured in the isthmus: 0 Bilateral neck scanned, no evidence of lymphadenopathy. IMPRESSION: Stable small, sub-centimeter nodule right lobe thyroid.
== END | disposition home or self-care (01) ==
LOC: RADUSWWP 15:22
PROVIDERS: ATTEND Family Medicine
DX: E04.1 Nontoxic single thyroid nodule (principal)
CPT/HCPCS: 76536

== ENCOUNTER → 2022-09-27 | Outpatient (CLI) | payer OTHER ==
--- NOTE | 2022-09-27 17:42 | US ---
EXAMINATION TYPE: Ultrasound OB <= 14 weeks transvaginalr DATE OF EXAM: 09/27/2022 3:21 PM COMPARISON: NONE CLINICAL INDICATION: Female, 37 years old with history of Z36.89 ENCOUNTER FOR OTHER SPECIFIED ANTENA BRODERICK SCR; confirm dates EXAM PERFORMED: Transvaginal (TV) and Transabdominal (TA) EXAM MEASUREMENTS: GESTATIONAL AGE / DATING Physician Established: Not yet established Dates by LMP: (7 weeks/1 days) EDC: 05/15/23 Dates by First Scan: No previous this is first scan Dates by Current Scan for: (7 weeks/0 days) EDC: 05/16/23 MATERNAL ANATOMY Uterus: 9.6 x 4.3 x 6.0cm - anechoic area right uterus adjacent to GS = 0.8 x 0.8 x 0.8cm Right Ovary: 3.1 x 2.1 x 2.1cm Left Ovary: 2.7 x 1.1 x 2.0cm Post CDS / Adnexa: wnl Presence of free fluid: no Presence of corpus luteal cyst: yes, right ovary = 1.9 x 1.5 x 1.6cm GESTATION / SURVEY CRL: 0.9cm (7 weeks/0 days) Yolk Sac (normal less than 6mm): 0.3cm Heart Rate: 130 bpm Rhythm: Normal IUP: Viable IUP anechoic area right uterus adjacent to GS = 0.8 x 0.8 x 0.8cm Date of LMP: 08/08/22 Beta HcG (if available): Not available at this time IMPRESSION: 1. Single live intrauterine with estimated gestational age of 7 weeks 1 day by LMP. Current ultrasound biometry is concordant at 7 weeks 0 days. 2. Small 8 mm cystic area adjacent to the gestational sac may represent a small perigestational bleed . Short interval follow-up can be performed. 3. Otherwise, complete survey at 18-20 weeks.
== END | disposition home or self-care (01) ==
LOC: RADUSWWP 14:13
PROVIDERS: ATTEND Obstetrics & Gynecology
DX: Z36.89 Encounter for other specified antenatal screening (principal); Z3A.01 Less than 8 weeks gestation of pregnancy
CPT/HCPCS: 76801; 76817

== ENCOUNTER 2022-10-29 06:00 | Emergency (ER) | payer OTHER ==
--- NOTE | 2022-10-29 06:32 | ED ---
Female Urogenital HPI - General Chief complaint: Vaginal Bleeding Stated complaint: 12 wks , bleeding Time Seen by Provider: 10/29/22 06:09 Source: patient, RN notes reviewed Mode of arrival: ambulatory Limitations: no limitations - History of Present Illness Initial comments: This is a 37-year-old female who presents to the emergency department for vaginal bleeding in . She is approximately 12 weeks and . She first noticed the bleeding when she woke up this morning, and that it was only a very small amount. She then started to feel like it became much heavier. However, when she used the restroom when she first got here, there was not any bleeding. She is patient of Dr. Chapin, [facility], and last saw him one week ago. States that heart tones looked good at that time. Her first was complicated by preeclampsia towards the end, but otherwise had no problems. Denies any cramping, nausea, or vomiting associated with the bleeding. Denies any fevers, chills, sore throat, cough, dyspnea, chest pain, palpitations, abdominal pain, nausea, vomiting, diarrhea, back pain, or headaches. MD Complaint: vaginal bleeding - Related Data Home Medications Medication Instructions Recorded Confirmed Multivitamins, Thera [Multivitamin 1 tab PO DAILY 07/18/20 01/08/21 (formulary)] Acyclovir [Zovirax] 01/05/21 01/05/21 Famotidine [Pepcid] 20 mg PO BID 01/05/21 01/08/21 Levothyroxine Sodium [Synthroid] 125 mcg PO DAILY 01/05/21 01/08/21 Previous Rx's Medication Instructions Recorded Ibuprofen [Motrin] 600 mg PO Q6HR PRN #30 tab 01/11/21 Allergies Allergy/AdvReac Type Severity Reaction Status Date / Time No Known Allergies Allergy Verified 10/29/22 06:04 Review of Systems ROS Statement: Those systems with pertinent positive or pertinent negative responses have been documented in the HPI. ROS Other: All systems not noted in ROS Statement are negative. Past Medical History Past Medical History: GERD/Reflux History of Any Multi-Drug Resistant Organisms: None Reported Past Surgical History: Adenoidectomy Past Anesthesia/Blood Transfusion Reactions: No Reported Reaction Past Psychological History: No Psychological Hx Reported Smoking Status: Former smoker Past Alcohol Use History: Rare Past Drug Use History: None Reported General Exam Limitations: no limitations General appearance: alert, in no apparent distress Head exam: Present: atraumatic, normocephalic, normal inspection Respiratory exam: Present: normal lung sounds bilaterally. Absent: respiratory distress, wheezes, rales, rhonchi, stridor Cardiovascular Exam: Present: regular rate, normal rhythm, normal heart sounds. Absent: systolic murmur, diastolic murmur, rubs, gallop, clicks Neurological exam: Present: alert, oriented X3, CN II-XII intact Psychiatric exam: Present: normal affect, normal mood Skin exam: Present: warm, dry, intact, normal color. Absent: rash Course Vital Signs 10/29/22 10/29/22 10/29/22 06:02 08:10 11:59 Temperature 97.6 F 98.4 F 99.0 F Pulse Rate 86 68 70 Respiratory 18 17 18 Rate Blood Pressure 108/72 107/58 119/53 O2 Sat by Pulse 100 95 96 Oximetry Medical Decision Making - Medical Decision Making This is a 37-year-old female who presents to the emergency department for vaginal bleeding in . Was pt. sent in by a medical professional or institution? @ -No Did you speak to anyone other than the patient for history? @ -No Did you review nursing and triage notes? @ -Yes, and I agree, it is accurate with regards to the patient's symptoms. Were old charts reviewed? @ -No Differential Diagnosis? @ -Differential Vaginal Bleeding: Spontaneous , threatened , molar , ectopic , incompetent cervix, placenta previa, uterine rupture, dysfunctional uterine bleeding, hemorrhage, uterine fibroids, malignancy, coagulopathy, PID, cervicitis, adenomyosis, vaginal trauma, this is not meant to be an all- inclusive list. EKG interpreted by me (3pts min.)? @ -Not obtained X-rays interpreted by me (1pt min.)? @ -Not obtained CT interpreted by me (1pt min.)? @ -Not obtained U/S interpreted by me (1pt. min.)? @ -Not interpreted by me What testing was considered but not performed? (CT, X-rays, U/S, labs)? Why? @ -None What meds were considered but not given? Why? @ -None Did you discuss the management of the patient with other professionals? @ -No Did you reconcile home meds? @ -No Was smoking cessation discussed for >3mins.? @ -No Was critical care preformed (if so, how long)? @ -No Were there social determinants of health that impacted care today? How? (Home lessness, low income, unemployed, alcoholism, drug addiction, transportation, low edu. Level, literacy, decrease access to med. care, nursing home, rehab)? @ -No Was there de-escalation of care discussed even if they declined? (Discuss DNR or withdrawal of care, Hospice)? @ -No What co-morbidities impacted this encounter? (DM, HTN, Smoking, COPD, CAD, Cancer, CVA, Hep., AIDS, mental health diagnosis, sleep apnea, morbid obesity)? @ - Was patient admitted / discharged? @ -Discharged. Lab work obtained and found to be nonactionable. Urinalysis reveals blood but no signs of infection. Urine culture will be sent. Obstetrics ultrasound obtained revealing a single live intrauterine . Patient is Rh- and RhoGAM was administered. There was no subchorionic hemorrhage noted on the ultrasound to explain the patient's bleeding. Advised the patient that this is considered a threatened . In the event this develops into a miscarriage, advised that the bleeding will increase in severity and she will likely develop cramping. Instructed her to contact her [facility] regarding this visit for any further instruction. Advised Tylenol as needed if she develops any cramping. Undiagnosed new problem with uncertain prognosis? @ -None Drug Therapy requiring intensive monitoring for toxicity (Heparin, Nitro, Insulin, Cardizem)? @ -None Were any procedures done? @ -None Diagnosis/symptom? @ -Vaginal bleeding in /threatened miscarriage Acute, or Chronic, or Acute on Chronic? @ -Acute Uncomplicated (without systemic symptoms) or Complicated (systemic symptoms)? @ -Uncomplicated Side effects of treatment? @ -None Exacerbation, Progression, or Severe Exacerbation] @ -Not applicable Poses a threat to life or bodily function? @ -If the bleeding were to increase substantially, it can become a life threatening issue, however that is not the case at this time. Return precautions reviewed in depth, the patient is instructed to return to the emergency department with any new, worsening, or concerning symptoms. Patient verbalized understanding. This case was discussed in detail with the attending ED physician, Dr. Montes. Presentation, findings, and treatment plan discussed in detail as well. - Lab Data Result diagrams: 10/29/22 06:35 10/29/22 06:35 Lab Results 10/29/22 10/29/22 10/29/22 Range/Units 06:35 06:35 06:35 WBC 5.7 (3.8-10.6) k/uL RBC 4.14 (3.80-5.40) m/uL Hgb 12.4 (11.4-16.0) gm/dL Hct 36.1 (34.0-46.0) % MCV 87.3 (80.0-100.0) fL MCH 30.0 (25.0-35.0) pg MCHC 34.3 (31.0-37.0) g/dL RDW 12.7 (11.5-15.5) % Plt Count 68 L (150-450) k/uL MPV 10.7 Neutrophils % 69 % Lymphocytes % 23 % Monocytes % 5 % Eosinophils % 1 % Basophils % 0 % Neutrophils # 3.9 (1.3-7.7) k/uL Lymphocytes # 1.3 (1.0-4.8) k/uL Monocytes # 0.3 (0-1.0) k/uL Eosinophils # 0.1 (0-0.7) k/uL Basophils # 0.0 (0-0.2) k/uL Manual Slide Review Performed RBC Morphology Normal Sodium 135 L (137-145) mmol/L Potassium 3.8 (3.5-5.1) mmol/L Chloride 107 (98-107) mmol/L Carbon Dioxide 20 L (22-30) mmol/L Anion Gap 8 mmol/L BUN 9 (7-17) mg/dL Creatinine 0.54 (0.52-1.04) mg/dL Est GFR (CKD-EPI)AfAm >90 (>60 ml/min/1.73 sqM) Est GFR (CKD-EPI)NonAf >90 (>60 ml/min/1.73 sqM) Glucose 112 H (74-99) mg/dL Calcium 8.6 (8.4-10.2) mg/dL Total Bilirubin 0.5 (0.2-1.3) mg/dL AST 26 (14-36) U/L ALT 17 (4-34) U/L Alkaline Phosphatase 46 (38-126) U/L Total Protein 6.5 (6.3-8.2) g/dL Albumin 3.6 (3.5-5.0) g/dL HCG, Quant 94382.8 mIU/mL Urine Color Yellow Urine Appearance Clear (Clear) Urine pH 6.5 (5.0-8.0) Ur Specific [place] 1.010 (1.001-1.035) Urine Protein Negative (Negative) Urine Glucose (UA) Negative (Negative) Urine Ketones Negative (Negative) Urine Blood Large H (Negative) Urine Nitrite Negative (Negative) Urine Bilirubin Negative (Negative) Urine Urobilinogen <2.0 (<2.0) mg/dL Ur Leukocyte Esterase Negative (Negative) Urine RBC 36 H (0-5) /hpf Urine WBC 1 (0-5) /hpf Ur Squamous Epith Cells <1 (0-4) /hpf Urine Bacteria Rare H (None) /hpf Urine Mucus Rare H (None) /hpf Blood Type Blood Type Recheck Bld Type Recheck Status Antibody Screen Antibody Identification Direct Antiglob Test 10/29/22 Range/Units 06:35 WBC (3.8-10.6) k/uL RBC (3.80-5.40) m/uL Hgb (11.4-16.0) gm/dL Hct (34.0-46.0) % MCV (80.0-100.0) fL MCH (25.0-35.0) pg MCHC (31.0-37.0) g/dL RDW (11.5-15.5) % Plt Count (150-450) k/uL MPV Neutrophils % % Lymphocytes % % Monocytes % % Eosinophils % % Basophils % % Neutrophils # (1.3-7.7) k/uL Lymphocytes # (1.0-4.8) k/uL Monocytes # (0-1.0) k/uL Eosinophils # (0-0.7) k/uL Basophils # (0-0.2) k/uL Manual Slide Review RBC Morphology Sodium (137-145) mmol/L Potassium (3.5-5.1) mmol/L Chloride (98-107) mmol/L Carbon Dioxide (22-30) mmol/L Anion Gap mmol/L BUN (7-17) mg/dL Creatinine (0.52-1.04) mg/dL Est GFR (CKD-EPI)AfAm (>60 ml/min/1.73 sqM) Est GFR (CKD-EPI)NonAf (>60 ml/min/1.73 sqM) Glucose (74-99) mg/dL Calcium (8.4-10.2) mg/dL Total Bilirubin (0.2-1.3) mg/dL AST (14-36) U/L ALT (4-34) U/L Alkaline Phosphatase (38-126) U/L Total Protein (6.3-8.2) g/dL Albumin (3.5-5.0) g/dL HCG, Quant mIU/mL Urine Color Urine Appearance (Clear) Urine pH (5.0-8.0) Ur Specific [place] (1.001-1.035) Urine Protein (Negative) Urine Glucose (UA) (Negative) Urine Ketones (Negative) Urine Blood (Negative) Urine Nitrite (Negative) Urine Bilirubin (Negative) Urine Urobilinogen (<2.0) mg/dL Ur Leukocyte Esterase (Negative) Urine RBC (0-5) /hpf Urine WBC (0-5) /hpf Ur Squamous Epith Cells (0-4) /hpf Urine Bacteria (None) /hpf Urine Mucus (None) /hpf Blood Type A Negative Blood Type Recheck A Neg Bld Type Recheck Status No Antibody Screen POSITIVE Antibody Identification Anti-D Direct Antiglob Test Negative - Radiology Data Radiology results: report reviewed, image reviewed Disposition Clinical Impression: Vaginal bleeding during Disposition: HOME SELF-CARE Instructions (If sedation given, give patient instructions): Non-Threatening First Trimester Vaginal Bleed (ED) Additional Instructions: Return to the emergency department with any new, worsening, or concerning symptoms. Contact your [facility] regarding your ER visit for further instruction. Is patient prescribed a controlled substance at d/c from ED?: No Referrals: Fam Mujica DO [Primary Care Provider] - 1-2 days Germain Chapin MD [STAFF PHYSICIAN] - 1-2 days
[2022-10-29 06:52] LABS: Basophils % (A) 0 %; Eosinophils # (A) 0.1 k/uL (0-0.7); Eosinophils % (A) 1 %; HCT 36.1 % (34.0-46.0); HGB 12.4 gm/dL (11.4-16.0); Lymphocytes # (A) 1.3 k/uL (1.0-4.8); Lymphocytes % (A) 23 %; MCHC 34.3 g/dL (31.0-37.0); MCV 87.3 fL (80.0-100.0); Mean Platelet Volume 10.7; Monocytes # (A) 0.3 k/uL (0-1.0); Monocytes % (A) 5 %; Neutrophils # (A) 3.9 k/uL (1.3-7.7); Neutrophils % (A) 69 %; RBC 4.14 m/uL (3.80-5.40); RDW 12.7 % (11.5-15.5); WBC 5.7 k/uL (3.8-10.6)
[2022-10-29 06:55] LABS: Appearance,Urine Clear (Clear); Bacteria,Urine Rare /hpf; Bilirubin,Urine Negative (Negative); Blood,Urine Large (Negative); Color,Urine Yellow; Glucose,Urine (UA) Negative (Negative); Ketones,Urine Negative (Negative); Leukocyte Esterase,Urine Negative (Negative); Mucus,Urine Rare /hpf; Nitrite,Urine Negative (Negative); PH, Urine 6.5 (5.0-8.0); Protein,Urine Negative (Negative); RBC,Urine 36 /hpf (0-5); Squamous Epithelial Cell,Urine <1 /hpf (0-4); Urobilinogen,Urine <2.0 mg/dL (<2.0); WBC,Urine 1 /hpf (0-5)
[2022-10-29 07:03] LABS: ALT 17 U/L (4-34); African American GFR (CKD) >90 (>60 ml/min/1.73 sqM); Albumin 3.6 g/dL (3.5-5.0); Anion Gap 8 mmol/L; Blood Urea Nitrogen 9 mg/dL (7-17); Calcium 8.6 mg/dL (8.4-10.2); Carbon Dioxide 20 mmol/L (22-30); Chloride 107 mmol/L (98-107); Glucose 112 mg/dL (74-99); Non-African American GFR(CKD) >90 (>60 ml/min/1.73 sqM); Sodium 135 mmol/L (137-145); Total Bilirubin 0.5 mg/dL (0.2-1.3); Total Protein 6.5 g/dL (6.3-8.2)
[2022-10-29 07:05] LABS: AST 26 U/L (14-36); Alkaline Phosphatase 46 U/L (38-126); Potassium 3.8 mmol/L (3.5-5.1)
[2022-10-29 07:46] LABS: HCG,Quantitative Serum 64053.8 mIU/mL
--- NOTE | 2022-10-29 08:05 | US ---
EXAMINATION TYPE: Transabdominal DATE OF EXAM: 10/29/2022 7:29 AM COMPARISON: CLINICAL INDICATION: Female, 37 years old with history of Vaginal bleeding, pt 12 weeks ; EC patient. Patient states she started bleeding today, no cramping or pain. EXAM PERFORMED: Transabdominal (TA) EXAM MEASUREMENTS: GESTATIONAL AGE / DATING Physician Established: (11 weeks/5 days) EDC: 05/15/2023 Dates by LMP: (11 weeks/5 days) EDC: 05/15/2023 Dates by Current Scan for: (11 weeks/2 days) EDC: 05/18/2023 MATERNAL ANATOMY Uterus: 12.8 x 7.0 x 6.1 cm Right Ovary: 2.8 x 2.3 x 1.7 cm Left Ovary: 2.1 x 1.6 x 1.3 cm Post CDS / Adnexa: no free fluid Presence of free fluid: no Presence of corpus luteal cyst: right ovary = 1.5 x 1.5 x 1.8 cm Presence of subchorionic bleed: no GESTATION / SURVEY CRL: 4.5 cm (11 weeks/2 days) MSD: seen, not measured Yolk Sac (normal less than 6mm): not visualized Heart Rate: 167 bpm Rhythm: Normal IUP: Viable IUP Date of LMP: 08/08/2022, Beta HcG (if available): Not available at this time IMPRESSION: 1. Single viable intrauterine . 2. Corpus luteal cyst right ovary.
[2022-10-29] MEDS ORDERED: Rhogam IMMUNE GLOBULIN 1,500 UNIT/1 ML IM ONE (08:08)
[2022-10-29 08:39] LABS: RBC Morphology Normal
[2022-10-29 08:41] LABS: Platelet Count 68 k/uL (150-450)
[2022-10-29 12:03] VITALS: BP 119/53; PULSE 70; RESP 18; TEMP 99
== END 2022-10-29 12:03 | disposition home or self-care (01) ==
LOC: EC 06:00
DX: O20.9 Hemorrhage in early pregnancy, unspecified (principal); Z87.891 Personal history of nicotine dependence; Z3A.12 12 weeks gestation of pregnancy
CPT/HCPCS: 36415; 86900; 86901; 86902; 80053; 85025; 86850; 86870; 86880; 81001; 84702; 76801; 99284; 96372; J2790

== ENCOUNTER 2023-04-12 09:59 | Outpatient (CLI) | payer OTHER ==
[2023-04-12 12:20] VITALS: BP 133/71; PULSE 101; RESP 16; TEMP 97.4
--- NOTE | 2023-04-16 06:50 | P.MSEPDOC ---
Presenting Problems - Arrival Data Date of Arrival on Unit: 04/12/23 Time of Arrival on Unit: 09:59 Mode of Transport: Ambulatory - Complaint OB-Reason for Admission/Chief Complaint: NST Comment: O24.419 Pt presents to triage for biweekly NST with written order from Dr. Chapin. Medical History - Information : 2 Para: 1 Term: 1 : 0 Abortions: Spontaneous or Elective: 0 Number of Living Children: 0 - Gestational Age Gestational Age by MARCOS (wks/days): 35 Weeks and 2 Days Review of Systems - Review of Systems Constitutional: No problems Breast: No problems ENT: No problems Cardiovascular: No problems Respiratory: No problems Gastrointestinal: No problems Genitourinary: No problems Musculoskeletal: No problems Neurological: No problems Skin: No problems Vital Signs - Temperature Temperature: 97.4 F Temperature Source: Temporal Artery Scan - Pulse Pulse Oximetery Pulse Rate: 101 Pulse Assessment Method: Pulse Oximetry - Respirations Respiratory Rate: 16 Oxygen Delivery Method: Room Air O2 Sat by Pulse Oximetry: 95 - Blood Pressure Right Arm Blood Pressure: 133/71 Blood Pressure Mean: 91 Blood Pressure Source: Automatic Cuff Medical Screen Scoring - Assessment - Baby A Baseline FHR: 125 Heart Rate - NICHD Category: Category I (Normal) NST: Reactive Physician Notification - Notification Comment Comment: Per written order, if reactive NST, pt can be discharged home. Maternal Triage Index - Maternal Triage Index Presenting for scheduled procedure w/no complaint: No - Stat/Priority 1 Stat Priority 1: No - Urgent/Priority 2 Urgent Priority 2: No - Prompt/Priority 3 Prompt Priority 3: No - Non-Urgent/Priority 4 Non-Urgent Priority 4: No - Scheduled/Requesting Priority 5 Scheduled/Requesting Priority 5: Yes Criteria Met for Priority 5: O24.419 Pt presents to triage for biweekly NST with written order from Dr. Chapin. Disposition - Disposition OB Disposition: Discharge to home, Written follow up instructions reviewed Discharge Date: 04/12/23 Discharge Time: 10:40 I agree with the RN Medical Screening Exam: Yes Case reviewed; plan agreed upon as documented in EMR&OBIX.: Yes Diagnosis: RELATED CONDITIONS, UNSPECIFIED, THIRD TRIMESTER
== END 2023-04-12 10:40 | disposition home or self-care (01) ==
LOC: FBPOP 09:59
PROVIDERS: ATTEND Obstetrics & Gynecology
DX: O24.419 Gestational diabetes mellitus in pregnancy, unspecified control (principal); Z3A.35 35 weeks gestation of pregnancy
CPT/HCPCS: 59025

== ENCOUNTER 2023-04-19 11:01 | Outpatient (CLI) | payer OTHER | END 2023-04-19 11:27 | disposition home or self-care (01) | LOC: FBPOP 11:01 | PROVIDERS: ATTEND Obstetrics & Gynecology | DX: O24.419 Gestational diabetes mellitus in pregnancy, unspecified control (principal); Z3A.00 Weeks of gestation of pregnancy not specified | CPT/HCPCS: 59025 ==

== ENCOUNTER 2023-04-24 09:45 | Outpatient (CLI) | payer OTHER ==
--- NOTE | 2023-04-26 06:51 | P.MSEPDOC ---
Presenting Problems - Arrival Data Date of Arrival on Unit: 04/24/23 Time of Arrival on Unit: 09:45 Mode of Transport: Ambulatory - Complaint OB-Reason for Admission/Chief Complaint: NST Comment: pt presents to triage for twice weekly nst for GDM, written order per Dr. Chapin if NST reactive will discharge pt Medical History - Information : 2 Para: 1 Term: 1 : 0 Abortions: Spontaneous or Elective: 0 Number of Living Children: 1 - Gestational Age Gestational Age by MARCOS (wks/days): 37 Weeks and 0 Days - History Complications: Prior Review of Systems - Review of Systems Constitutional: No problems Breast: No problems ENT: No problems Cardiovascular: No problems Respiratory: No problems Gastrointestinal: No problems Genitourinary: No problems Musculoskeletal: No problems Neurological: No problems Skin: No problems Physician Notification - Notification Comment Comment: NST reactive and discharged per written order Maternal Triage Index - Maternal Triage Index Presenting for scheduled procedure w/no complaint: Yes - Scheduled/Requesting Priority 5 Scheduled/Requesting Priority 5: Yes Criteria Met for Priority 5: pt presents to triage for twice weekly nst for GDM, written order per Dr. Chapin if NST reactive will discharge pt Disposition - Disposition OB Disposition: Triage, Discharge to home, Written follow up instructions reviewed Discharge Date: 04/24/23 Discharge Time: 10:20 I agree with the RN Medical Screening Exam: Yes Case reviewed; plan agreed upon as documented in EMR&OBIX.: Yes Diagnosis: RELATED CONDITIONS, UNSPECIFIED, THIRD TRIMESTER
== END 2023-04-24 10:20 | disposition home or self-care (01) ==
LOC: FBPOP 09:45
PROVIDERS: ATTEND Obstetrics & Gynecology
DX: O24.419 Gestational diabetes mellitus in pregnancy, unspecified control (principal); Z3A.37 37 weeks gestation of pregnancy
CPT/HCPCS: 59025

== ENCOUNTER 2023-04-30 09:40 | Outpatient (CLI) | payer OTHER ==
[2023-04-30 10:16] VITALS: BP 133/78; PULSE 105; RESP 18; TEMP 98
--- NOTE | 2023-04-30 17:28 | P.MSEPDOC ---
Presenting Problems - Arrival Data Date of Arrival on Unit: 04/30/23 Time of Arrival on Unit: 09:40 Mode of Transport: Ambulatory - Complaint OB-Reason for Admission/Chief Complaint: NST Medical History - Information : 2 Para: 1 Term: 1 : 0 Abortions: Spontaneous or Elective: 0 Number of Living Children: 1 - Gestational Age Gestational Age by MARCOS (wks/days): 37 Weeks and 6 Days - History Complications: GDM Review of Systems - Review of Systems Constitutional: No problems Breast: No problems ENT: No problems Cardiovascular: No problems Respiratory: No problems Gastrointestinal: No problems Genitourinary: No problems Musculoskeletal: No problems Neurological: No problems Skin: No problems Vital Signs - Temperature Temperature: 98.0 F Temperature Source: Axillary - Pulse Right Pulse Rate: 105 Pulse Assessment Method: Automatic Cuff - Respirations Respiratory Rate: 18 Oxygen Delivery Method: Room Air O2 Sat by Pulse Oximetry: 98 - Blood Pressure Right Arm Blood Pressure: 133/78 Blood Pressure Mean: 96 Blood Pressure Source: Automatic Cuff Medical Screen Scoring - Assessment - Baby A Baseline FHR: 130 Heart Rate - NICHD Category: Category I (Normal) NST: Reactive Physician Notification - Physician Notified Physician Notified Date: 04/30/23 Physician Notified Time: 10:02 Physician: Germain Chapin New Order Received: Yes (OK to discharge when reactive) Maternal Triage Index - Maternal Triage Index Presenting for scheduled procedure w/no complaint: Yes - Scheduled/Requesting Priority 5 Scheduled/Requesting Priority 5: No Disposition - Disposition OB Disposition: Discharge to home Discharge Date: 04/30/23 Discharge Time: 10:10 I agree with the RN Medical Screening Exam: Yes Case reviewed; plan agreed upon as documented in EMR&OBIX.: Yes Diagnosis: RELATED CONDITIONS, UNSPECIFIED, THIRD TRIMESTER
== END 2023-04-30 10:10 | disposition home or self-care (01) ==
LOC: FBPOP 09:40
PROVIDERS: ATTEND Obstetrics & Gynecology
DX: O24.419 Gestational diabetes mellitus in pregnancy, unspecified control (principal); Z3A.37 37 weeks gestation of pregnancy
CPT/HCPCS: 59025

== ENCOUNTER 2023-05-08 05:52 | Inpatient (IN) | payer OTHER ==
--- NOTE | 2023-05-07 06:50 | P.HPOB ---
History of Present Illness H&P Date: 05/07/23 Chief Complaint: Repeat section requesting permanent sterilization This patient is a pleasant 37-year-old 2 para 1 female estimated date of confinement 05/15/2023 estimated gestational age 39-0/7 weeks who presents to labor and delivery for requested repeat section and also requesting permanent sterilization. Patient's obstetrical history is such that she had a primary for her last for failed progress and preeclampsia. Patient this has been on a low dose aspirin regimen and was referred to maternal- medicine for advanced maternal age. Patient's genetic evaluation has been normal level III ultrasound has been normal. has been complicated by gestational diabetes which is been managed by maternal medicine as well. She also did have some second trimester bleeding for which she was given RhoGAM. Patient is now requesting repeat section and wishes to have a tubal ligation. Review of Systems Genitourinary: Reports Menstruation: Reports amenorrhea Past Medical History Past Medical History: GERD/Reflux Additional Past Medical History / Comment(s): Gestational diabetes History of Any Multi-Drug Resistant Organisms: None Reported Past Surgical History: Adenoidectomy, Section Past Anesthesia/Blood Transfusion Reactions: No Reported Reaction Past Psychological History: No Psychological Hx Reported Smoking Status: Former smoker Past Alcohol Use History: Rare Past Drug Use History: None Reported Medications and Allergies Home Medications Medication Instructions Recorded Confirmed Type Aspirin [Adult Low Dose Aspirin EC] 1 capsule PO DAILY 04/12/23 04/30/23 History Pnv No.154/Iron Fum/Folic Acid 1 capsule PO DAILY 04/12/23 04/30/23 History [ Plus Vitamin Tablet] Acyclovir 200 mg PO DAILY 04/24/23 04/30/23 History Allergies Allergy/AdvReac Type Severity Reaction Status Date / Time No Known Allergies Allergy Verified 04/30/23 09:53 Exam - OBG Physical Exam Abdomen: bowel sounds normal, no diffuse tenderness, no bruit present, no guarding noted, no hepatomegaly, no splenomegaly, no mass Vulva: both: normal Vagina: normal moisture, no discharge Cervix: no lesion, no discharge Uterus: enlarged Results labs show she is A negative, rubella immune, RPR nonreactive, hepatitis B is negative, hepatitis C is negative, HIV is nonreactive, so free DNA was normal, level III ultrasound was normal, growth ultrasounds have been normal. Patient received RhoGAM on February 27 Assessment and Plan Assessment: This is a pleasant 37-year-old 2 para 1 female 39-0/7 weeks gestation admitted to labor and delivery for elective repeat section and also requesting permanent sterilization. Plan is repeat low transverse section and bilateral partial salpingectomy. Patient understands this surgery and risks and risks of infection, bleeding, possible injury bowel, bladder, vessels, and other organs. All the patient's questions have been answered and a written consent is obtained. (1) 39 weeks gestation of Status: Acute Code(s): Z3A.39 - 39 WEEKS GESTATION OF SNOMED Code(s): 94451851 (2) Previous delivery affecting Status: Acute Code(s): O34.219 - MATERNAL CARE FOR UNSP TYPE SCAR FROM PREVIOUS DEL SNOMED Code(s): 007099163 (3) Elderly multigravida Status: Acute Code(s): O09.529 - SUPERVISION OF ELDERLY MULTIGRAVIDA, UNSPECIFIED TRIMESTER SNOMED Code(s): 933883929 (4) Gestational diabetes Status: Acute Code(s): O24.419 - GESTATIONAL DIABETES MELLITUS IN , UNSP CONTROL SNOMED Code(s): 30441195 (5) Family planning Status: Acute Code(s): Z30.09 - ENCOUNTER FOR OTH GENERAL CNSL AND ADVICE ON CONTRACEPTION SNOMED Code(s): 032334594 (6) Rh negative status during Status: Acute Code(s): O26.899 - OTH RELATED CONDITIONS, UNSPECIFIED TRIMESTER; Z67.91 - UNSPECIFIED BLOOD TYPE, RH NEGATIVE SNOMED Code(s): 415469205
[2023-05-08] MEDS ORDERED: CARBOPROST TROMETHAMINE 250 MCG/ML 1 ML AMP IM PRN (06:00)
[2023-05-08] MEDS ORDERED: OXYTOCIN 10 UNIT/ML 1 ML VIAL IM PRN (06:00)
[2023-05-08] MEDS ORDERED: LACTATED RINGERS 1,000 ML IV SCH (06:00)
[2023-05-08] MEDS ORDERED: CITRIC ACID-SODIUM CITRATE 15 ML CUP PO ONE (06:00)
[2023-05-08] MEDS ORDERED: miSOPROStoL 200 MCG TAB PO PRN (06:00)
[2023-05-08] MEDS ORDERED: METHYLERGONOVINE 0.2 MG/ML 1 ML AMP IM PRN (06:00)
[2023-05-08] MEDS ORDERED: LACTATED RINGERS 1,000 ML IV ONE (06:00)
[2023-05-08] MEDS ORDERED: TRANEXAMIC 1,000 MG/100ML-NACL 1,000 MG in EMPTY BAG 1 BAG IV PRN (06:00)
[2023-05-08 06:15] LABS: Glucose,Whole Blood 101 mg/dL (70-110)
[2023-05-08 06:48] LABS: Basophils % (A) 0 %; Eosinophils # (A) 0.1 k/uL (0-0.7); Eosinophils % (A) 1 %; HCT 38.2 % (34.0-46.0); HGB 13.1 gm/dL (11.4-16.0); Lymphocytes % (A) 19 %; MCH 30.1 pg (25.0-35.0); MCHC 34.2 g/dL (31.0-37.0); Mean Platelet Volume 9.9; Monocytes # (A) 0.5 k/uL (0-1.0); Monocytes % (A) 5 %; Neutrophils # (A) 7.7 k/uL (1.3-7.7); Neutrophils % (A) 73 %; Platelet Count 204 k/uL (150-450); RBC 4.34 m/uL (3.80-5.40); WBC 10.5 k/uL (3.8-10.6)
[2023-05-08] MEDS ORDERED: OXYTOCIN 30 UNITS/500 ML NS BAG IV ONE (08:29)
[2023-05-08] MEDS ORDERED: MORPHINE SULFATE (PF) 0.3 MG/0.3 ML SYR ONE (08:29)
[2023-05-08] MEDS ORDERED: ONDANSETRON 4 MG/2 ML VIAL ONE (08:29)
[2023-05-08] MEDS ORDERED: PHENYLEPHRINE-0.9% NACL SYG 1,000 MCG/10 ML SYRINGE ONE (08:29)
[2023-05-08] MEDS ORDERED: KETOROLAC 30 MG/ML 1 ML VIAL ONE (08:29)
--- NOTE | 2023-05-08 09:21 | P.OP ---
Date of Procedure: 05/08/23 Preoperative Diagnosis: #1: 39-0/7 week . #2: Previous section desires repeat. #3: Multi parity desires permanent sterilization. #4: Gestational diabetes Postoperative Diagnosis: Same Procedure(s) Performed: Repeat low transverse section and bilateral partial salpingectomy Anesthesia: spinal Surgeon: Germain Chapin Functional Skills Tutor #1: Gail Thorpe Estimated Blood Loss (ml): 600 Pathology: other (Placenta and bilateral fallopian tube segments) Condition: stable Disposition: floor Indications for Procedure: Please see dictated H&P for intimate details of this patient's admission. Brief summary is a pleasant 37-year-old 2 para 1 female 39-0/7 weeks gestation admitted to labor and delivery for elective repeat section and also requesting permanent sterilization. Patient understands a tubal ligation is p ermanent however does have a failure rate of less than 5 per thousand procedures done. She also understands that surgery itself and apparently has risks and risks of infection, bleeding, possible injury bowel, bladder, vessels, and other organs. All the patient's questions are answered and a written consent is obtained. Operative Findings: This is a vigorous viable male infant Apgars 9 and 9 delivery time was 0846 hours. The uterus, tubes, ovaries appear normal for term gestation Description of Procedure: This patient has a Guevara catheter placed to straight drain. She subsequently taken to the operating room where she sat up and spinal anesthetic is administered without incident. She has abdominal prep and drape. The appropriate timeout is done. With adequate anesthesia assured, a scalpels taken in the previous Pfannenstiel incision is incised. A second scalpel is taken down to the fascia the fascia scored with a knife. Fascial incision extended bilaterally using the Moon scissors. Fascia is then dissected sharply off the rectus muscles. Rectus muscles are the peritoneum identified and entered sharply. Peritoneal incision extended superior and inferior without difficulty. Bladder blade is then placed. Bladder peritoneum was taken sharply off the lower uterine segment. A scalpel is then taken and a low transverse uterine incision is then made. Using a hemostat I into the uterine cavity bluntly and there is loss of clear fluid. Uterine incision is extended bluntly. is then guided through the incision the vertex presentation with fundal pressure. Mouth and nares are bulb suctioned. There is a nuchal cord 1. With more fundal pressure we then have deliver the rest of this infant's body. This is a vigorous viable male Apgars are 9 and 9 delivery time is 0846 hrs. After delivery of the infant the umbilical cord is doubly clamped and cut infant is handed off to the nurses in attendance. The placenta is then manually extracted intact. Uterus is then externalized and uterine incision closed using 0 Vicryl running locked fashion 2 layers. Excellent hemostasis is noted. I then turned my attention left fallopian tube and approximately 4 cm from the cornual insertion a small window is made to the mesial salpinx. Using Bovie cautery I make a small window in the mesial salpinx and using a 2-0 silk I doubly ligate a 2 cm segment of the fallopian tube. The segment of tube was excised and handed off to pathology. Tubal ends are cauterized. Using a similar technique on the right side right fallopian tube segment is removed. Uterus then placed back into the abdomen. All appears hemostatic. Then identified the parietal peritoneum is closed using 0 Vicryl running fashion. The rectus muscles are reapproximated in 0 Vicryl interrupted fashion. Fascial incision closed using 0 PDS. Fascial incision is intact and hemostatic. Subcutaneous tissues and closed using a 3-0 Vicryl. Skin is and closed using carey. All counts are correct 3. There are no complications. Infant and mother are taken to the birthing suite in satisfactory condition
[2023-05-08] MEDS ORDERED: NALOXONE 0.4 MG/ML 1 ML VIAL IV PRN (10:36)
[2023-05-08] MEDS ORDERED: OXYTOCIN 30 UNITS/500 ML NS 30 UNIT in SALINE 1 500ML.BAG IV SCH (10:36)
[2023-05-08] MEDS ORDERED: diphenhydrAMINE 50 MG/ML 1 ML VIAL IVP PRN (10:36)
[2023-05-08] MEDS ORDERED: ZOLPIDEM 5 MG TAB PO PRN (10:36)
[2023-05-08] MEDS ORDERED: diphenhydrAMINE 25 MG CAP PO PRN (10:36)
[2023-05-08] MEDS ORDERED: SIMETHICONE 80 MG CHEWABLE PO PRN (10:36)
[2023-05-08] MEDS ORDERED: METOCLOPRAMIDE 5 MG/ML 2 ML VIAL IVP PRN (10:36)
[2023-05-08] MEDS ORDERED: ONDANSETRON 4 MG/2 ML VIAL IVP PRN (10:36)
[2023-05-08] MEDS ORDERED: LANOLIN CREAM 5 GM TUBE TOPICAL PRN (10:36)
[2023-05-08] MEDS ORDERED: Rhogam IMMUNE GLOBULIN 1,500 UNIT/1 ML IM ONE (14:47)
[2023-05-08] MEDS: LACTATED RINGERS 1,000 ML IV SCH ×2 (14:49→19:37)
[2023-05-08] MEDS: KETOROLAC 15 MG/ML 1 ML VIAL IVP SCH (15:33)
[2023-05-08] MEDS ORDERED: ONDANSETRON 4 MG TAB PO PRN (17:51)
[2023-05-08] MEDS: ACETAMINOPHEN TAB 500 MG TAB PO SCH ×2 (18:15→19:43)
[2023-05-08] MEDS: IBUPROFEN 600 MG TAB PO SCH ×2 (18:15→22:41)
[2023-05-08] MEDS: SENNOSIDES-DOCUSATE SODIUM 1 EACH TAB PO SCH ×2 (19:43→20:24)
[2023-05-09] MEDS: KETOROLAC 15 MG/ML 1 ML VIAL IVP SCH ×2 (02:39→09:20)
[2023-05-09] MEDS: ACETAMINOPHEN TAB 500 MG TAB PO SCH ×3 (02:41→18:43)
[2023-05-09] MEDS: LACTATED RINGERS 1,000 ML IV SCH (03:46)
--- NOTE | 2023-05-09 06:08 | P.PN ---
Progress Note - Text Progress Note Date: 05/09/23 Patient doing well. Ambulating w/o paresthesia or weakness. Denies headache. Some pruritis, but pt doesn't want treatment at this time. Pain well controlled with multimodal analgesia. Back - spinal site clean and dry. A/P POD #1 s/p with spinal duramorph - continue current regimen
[2023-05-09 06:56] LABS: Basophils % (A) 0 %; Eosinophils # (A) 0.1 k/uL (0-0.7); Eosinophils % (A) 1 %; HCT 33.4 % (34.0-46.0); HGB 11.3 gm/dL (11.4-16.0); Lymphocytes # (A) 1.7 k/uL (1.0-4.8); Lymphocytes % (A) 18 %; MCH 30.4 pg (25.0-35.0); MCV 89.5 fL (80.0-100.0); Mean Platelet Volume 9.6; Monocytes # (A) 0.5 k/uL (0-1.0); Monocytes % (A) 5 %; Neutrophils % (A) 73 %; Platelet Count 162 k/uL (150-450); RBC 3.73 m/uL (3.80-5.40); RDW 12.9 % (11.5-15.5); WBC 9.6 k/uL (3.8-10.6)
--- NOTE | 2023-05-09 06:56 | P.PNOBGPC ---
Subjective - Subjective Patient reports: Reports appetite normal, Reports voiding normally, Reports pain well controlled, Reports ambulating normally : doing well Objective - Vital Signs Latest vital signs: Vital Signs Temp Pulse Resp BP Pulse Ox 05/09/23 00:00 98.5 F 78 18 126/78 05/08/23 19:53 75 18 123/77 97 05/08/23 16:00 97.7 F 70 16 122/60 96 05/08/23 12:00 97.9 F 67 16 107/54 05/08/23 11:16 74 16 103/51 05/08/23 10:46 61 16 106/55 99 05/08/23 10:16 62 16 105/52 97 05/08/23 10:01 72 16 109/44 99 05/08/23 09:46 72 16 98 05/08/23 09:31 74 16 99 05/08/23 09:16 96.9 F L 74 16 98 Intake and Output 05/08/23 05/08/23 05/09/23 14:59 22:59 06:59 Intake Total 1250 Output Total 515 600 400 Balance -515 650 -400 Intake: IV 950 Oral 300 Output: Urine 600 400 Output, Quantitative 515 Blood Loss Other: Voiding Method Indwelling Catheter Indwelling Catheter - Exam Lungs: bilateral: normal Chest: Normal S1, Normal S2 Extremities: Present: normal Abdomen: Present: normal appearance, soft. Absent: distention, tenderness Incision: Present: normal, dry, intact Uterus: Present: normal, firm Assessment and Plan Assessment: Post operative day #1. Patient is resting without complaints. Vital signs are stable she's afebrile. Uterus is firm nontender and her incision is intact and dry. CBC is pending at time of this dictation. Patient is ambulating and urinating without difficulty. Plan today is to check a CBC, encourage ambulation, allow the patient to shower, continue routine post operative care. Patient will be seen by Dr. Valdez tomorrow and most likely go home (1) 39 weeks gestation of Current Visit: No Status: Acute Code(s): Z3A.39 - 39 WEEKS GESTATION OF SNOMED Code(s): 46423235 (2) Previous delivery affecting Current Visit: No Status: Acute Code(s): O34.219 - MATERNAL CARE FOR UNSP TYPE SCAR FROM PREVIOUS DEL SNOMED Code(s): 759817232 (3) Elderly multigravida Current Visit: No Status: Acute Code(s): O09.529 - SUPERVISION OF ELDERLY MULTIGRAVIDA, UNSPECIFIED TRIMESTER SNOMED Code(s): 789372765 (4) Gestational diabetes Current Visit: No Status: Acute Code(s): O24.419 - GESTATIONAL DIABETES MELLITUS IN , UNSP CONTROL SNOMED Code(s): 40959901 (5) Family planning Current Visit: No Status: Acute Code(s): Z30.09 - ENCOUNTER FOR OTH GENERAL CNSL AND ADVICE ON CONTRACEPTION SNOMED Code(s): 570368781 (6) Rh negative status during Current Visit: No Status: Acute Code(s): O26.899 - OTH RELATED CONDITIONS, UNSPECIFIED TRIMESTER; Z67.91 - UNSPECIFIED BLOOD TYPE, RH NEGATIVE SNOMED Code(s): 676339025
[2023-05-09 09:14] VITALS: RESP 16
[2023-05-09] MEDS: SENNOSIDES-DOCUSATE SODIUM 1 EACH TAB PO SCH ×2 (09:20→19:53)
[2023-05-09] MEDS: IBUPROFEN 600 MG TAB PO SCH ×4 (09:20→21:46)
[2023-05-10] MEDS: ACETAMINOPHEN TAB 500 MG TAB PO SCH ×2 (00:12→08:10)
[2023-05-10] MEDS: IBUPROFEN 600 MG TAB PO SCH ×2 (03:25→11:42)
[2023-05-10] MEDS: SENNOSIDES-DOCUSATE SODIUM 1 EACH TAB PO SCH (08:10)
--- NOTE | 2023-05-10 09:05 | P.DS ---
Providers Date of admission: 05/08/23 05:52 Expected date of discharge: 05/10/23 Attending physician: Germain Chapin Primary care physician: Stated None Hospital Course: This is a 37-year-old female 2 para 1 at 39-0/7 weeks who presented for scheduled repeat section with bilateral partial salpingectomy. Please see history and physical and operative notes for details of the patient admission. Patient's was also complicated by gestational diabetes. Her postoperative course has been uncomplicated. She did deliver a viable male infant with scores of 9 at 1 minute and 9 at 5 minutes and infant weight of 6 lbs. 10 oz. She is breast-feeding. Lochia is decreasing. Her pain is fairly well controlled with ibuprofen and Tylenol. She is passing flatus and bowel movement. Lochia has been minimal. Vital signs are stable. Abdomen is soft with positive bowel sounds 4. Incision is clean dry and intact with carey in place. Extremities show negative Homans. Impression is status post repeat low transverse section with bilateral partial salpingectomy on 05/08/2023. Plan is to discharge home today. Routine postoperative and instructions are given. Prescriptions have been sent in by Dr. Chapin. She will be given a prescription for a breast pump. She is advised to follow up with Dr. Chapin in 1 week in the office for a postoperative check and in 6 weeks for a check. She is advised to call the office if she has any further questions or concerns prior to her appointment time. Carey will be removed and Steri-Strips placed prior to discharge. Procedures: Repeat low transverse section with bilateral partial salpingectomy 05/08/2023 Patient Condition at Discharge: Stable Plan - Discharge Summary New Discharge Prescriptions: New Ibuprofen [Motrin] 600 mg PO Q6H #40 tab oxyCODONE HCL [OxyIR] 5 mg PO Q4HR PRN #18 tab PRN Reason: Pain Scale 4 - 6 No Action Pnv No.154/Iron Fum/Folic Acid [ Plus Vitamin Tablet] 1 capsule PO DAILY Aspirin [Adult Low Dose Aspirin EC] 1 capsule PO DAILY Acyclovir 200 mg PO DAILY Discharge Medication List Aspirin [Adult Low Dose Aspirin EC] 1 capsule PO DAILY 04/12/23 [History] Pnv No.154/Iron Fum/Folic Acid [ Plus Vitamin Tablet] 1 capsule PO DAILY 04/12/23 [History] Acyclovir 200 mg PO DAILY 04/24/23 [History] Ibuprofen [Motrin] 600 mg PO Q6H #40 tab 05/09/23 [Rx] oxyCODONE HCL [OxyIR] 5 mg PO Q4HR PRN #18 tab 05/09/23 [Rx] Follow up Appointment(s)/Referral(s): Germain Chapin MD [STAFF PHYSICIAN] - 05/17/23 9:00 am (Please see me as scheduled in 1 week for an incision check and also on June 18 at 9:30 AM for visit) Patient Instructions/Handouts: (DC) Activity/Diet/Wound Care/Special Instructions: No heavy lifting or strenuous activity for 6 weeks. No intercourse or anything per vagina for 6 weeks. Please call if any fever, chills, excessive vaginal bleeding, and/or abdominal pain Discharge Disposition: HOME SELF-CARE
[2023-05-10 09:14] VITALS: BP 113/64; PULSE 92; TEMP 98.3
== END 2023-05-10 12:30 | disposition home or self-care (01) | DRG 539 ==
LOC: 4FBP 05:52
PROVIDERS: ADMIT Obstetrics & Gynecology; ATTEND Obstetrics & Gynecology
PROC: 0UB70ZZ Excision of Bilateral Fallopian Tubes, Open Approach (ICD-10-PCS; 2023-05-08)
PROC: 10D00Z1 Extraction of Products of Conception, Low, Open Approach (ICD-10-PCS; principal; 2023-05-08 08:30)
DX: O34.211 Maternal care for low transverse scar from previous cesarean delivery (principal); O24.429 Gestational diabetes mellitus in childbirth, unspecified control; O26.893 Other specified pregnancy related conditions, third trimester; Z30.2 Encounter for sterilization; Z37.0 Single live birth; Z3A.39 39 weeks gestation of pregnancy; Z67.91 Unspecified blood type, Rh negative; Z79.82 Long term (current) use of aspirin; Z87.891 Personal history of nicotine dependence; L29.9 Pruritus, unspecified
CPT/HCPCS: 83036; 85025; 85461; 86850; 86900; 86901

== ENCOUNTER → 2023-11-15 | Outpatient (CLI) | payer OTHER ==
--- NOTE | 2023-11-15 19:35 | US ---
EXAMINATION TYPE: US thyroid st tissue head/neck DATE OF EXAM: 11/15/2023 COMPARISON: Thyroid ultrasound 09/04/2021, 12/19/2020 CLINICAL INDICATION: Female, 38 years old with history of E04.1 THYROID NODULE; Follow up thyroid nod ule. Not on thyroid meds. GLAND SIZE: Right Lobe: 4.0 x 1.6 x 1.4 cm Overall Parenchyma: homogeneous Left Lobe: 4.1 x 1.7 x 1.6 cm Overall Parenchyma: homogeneous Isthmus Thickness: 0.4 cm NODULES RIGHT: # of nodules measured on right: 1 1. 0.5 X 0.6 x 0.3 cm, upper medial, solid or almost completely solid, isoechoic nodule, which is w ider than tall, with smooth margins, without echogenic foci. Stable TR 3 nodule. Prior size: 0.5 x 0.4 x 0.3 cm LEFT: # of nodules measured on left: 0 ISTHMUS: # of nodules measured in the isthmus: 0 Bilateral neck scanned, no evidence of lymphadenopathy. IMPRESSION: Stable right thyroid lobe subcentimeter TR 3 nodule. No new or enlarging thyroid nodules. ACR TI-RADS LEVEL: TR-RADS 3 - Follow if > 1.5 cm, FNA if > 2.5 cm *Highest TI-RADS level nodule reported
== END | disposition home or self-care (01) ==
LOC: RADUSWWP 10:58
PROVIDERS: ATTEND Family Medicine
DX: E04.1 Nontoxic single thyroid nodule (principal)
CPT/HCPCS: 76536